=== PATIENT | female | born 1950 | race Caucasian/White ===

== ENCOUNTER → 2018-02-12 09:01 | Outpatient (CLI) | payer MEDICARE, BC, SELFPAY ==
[2018-02-12 11:12] LABS: Abs Immature Grans 0.02 k/cumm (0.0-0.09); Absolute Basophil Count 0.03 k/cumm (0.0-0.2); Absolute Eosinophil Count 0.21 k/cumm (0.0-0.7); Absolute Lymphocyte Count 1.16 k/cumm (1.2-3.4); Absolute Neutrophil Count 4.84 k/cumm (1.2-6.7); Basophils % 0.4; Eosinophils % 3.1; HCT 38.2 % (36.0-46.0); HGB 12.6 g/dL (12.0-15.5); Immature Grans % 0.3; Lymphocytes % 16.9; Mean Corpuscular Hemoglobin 28.7 pg (27.0-33.0); Mean Platelet Volume 9.5 fL (8.0-11.0); Monocytes % 8.7; Neutrophils % 70.6; Platelet Count 388 x1000/uL (130-400); RBC 4.39 m/cumm (4.00-5.20); RBC Distribution Width 13.4 % (11.7-14.6); White Blood Cell Count 6.86 k/cumm (4.4-10.8)
[2018-02-12 11:27] LABS: ALT 14 U/L (12-78); AST 9 U/L (15-37); Albumin 3.1 g/dL (3.4-5.0); Alkaline Phosphatase 47 U/L (46-116); Anion Gap 7.1 mmol/L (3-11); BUN 16 mg/dL (7-18); Bilirubin, Total 0.3 mg/dL (0.2-1.0); CO2 28.9 mmol/L (21.0-32.0); CREATININE 0.86 mg/dL (0.55-1.02); Calcium 9.5 mg/dL (8.5-10.1); Chloride 104 mmol/L (98-107); Cholesterol 166 mg/dL (50-200); Glucose 127 mg/dL (70-100); HDL Cholesterol 28 mg/dL (40-60); LDL CHOLESTEROL 111 mg/dL (<100); Potassium 4.9 mmol/L (3.5-5.1); Sodium 140 mmol/L (136-145); Triglyceride 186 mg/dL (30-150)
[2018-02-12 11:50] LABS: Hemoglobin A1C 6.6 % (4.5-6.2)
[2018-02-13 06:37] LABS: Vitamin D 25 Total 18.3 ng/ml (30-100)
== END ==
DX: I10 Essential (primary) hypertension (principal); E78.5 Hyperlipidemia, unspecified; E11.9 Type 2 diabetes mellitus without complications; R41.3 Other amnesia; E66.9 Obesity, unspecified; F32.9 Major depressive disorder, single episode, unspecified; F41.9 Anxiety disorder, unspecified; K21.9 Gastro-esophageal reflux disease without esophagitis; R10.13 Epigastric pain
CPT/HCPCS: 36415; 80053; 80061; 82306; 83721; 83036; 85025

== ENCOUNTER 2018-03-28 19:55 | Emergency (ER) | payer MEDICARE, BC, SELFPAY ==
[2018-03-28 19:59] VITALS: BP 110/62; PULSE 88; RESP 18; TEMP 36.7; O2SAT 96
--- NOTE | 2018-03-28 20:07 | DI.CT_ITS ---
SYMPTOM/DIAGNOSIS; FELL, PAIN NONCONTRAST HEAD CT: Comparison is made with 08/02/16. The ventricles and sulci are within normal limits. There are areas of decreased attenuation in the white matter suggestive of small vessel ischemic disease. No acute intracranial hemorrhage, infarct, midline shift or mass effect is identified. The visualized paranasal sinuses are clear. The mastoid air cells are well pneumatized. The calvarium is intact. IMPRESSION: No acute intracranial process. FACIAL CT: Multiple contiguous axial images of the face were obtained. Sagittal and coronal reformatted images were evaluated on the Siemens work station. No acute fracture or dislocation is seen. The orbits and retro-orbital soft tissues are unremarkable. The visualized paranasal sinuses are clear. IMPRESSION: No acute fracture.
--- NOTE | 2018-03-28 20:16 | ED.GENADUL_ITS ---
Discharge Plan Disposition Patient Disposition: HOME Condition: Stable Discharge Details Chief Complaint: Trauma Clinical Impression: Concussion, Contusion of face, Contusion of hip, left Primary Care Provider: Rosa Elena Kingston ED Provider: Armen Ann Home Meds and New Rx's Prescriptions: New ondansetron [Zofran ODT] 4 mg tablet,disintegrating 4 mg PO TID PRN (Reason: nausea and vomiting) 5 Days Qty: 20 RF: 0 Continue metformin [Glucophage XR] 500 mg tablet extended release 24 hr 500 mg PO QPM Qty: 30 RF: 3 citalopram 10 mg tablet 10 mg PO DAILY Qty: 30 RF: 3 loratadine 10 MG tablet 10 mg PO DAILY Qty: 30 RF: 0 blood-glucose meter 1 EACH misc 1 ea Miscellaneous DAILY Qty: 1 RF: 0 blood sugar diagnostic [Blood Glucose Test] 1 EACH strip 1 ea Miscellaneous DAILY Qty: 100 RF: 12 lancets 1 EACH misc 1 ea Miscellaneous TID & PRN Qty: 400 RF: 12 oxybutynin chloride 5 MG tablet 5 mg PO BID Qty: 90 RF: 3 lorazepam [Ativan] 0.5 MG tablet 0.5 mg PO BID PRNQty: 15 RF: 0 cholecalciferol (vitamin D3) 1,000 UNIT tablet 1,000 unit PO DAILY Qty: 90 RF: 3 losartan 50 MG tablet 50 mg PO BID Qty: 180 RF: 3 latanoprost [Xalatan] 2.5 ML drops 1 drp OU HS RF: 0 acetaminophen [Arthritis Pain Relief (acetam)] 650 MG tablet extended release 2 tab PO BID PRN PRNRF: 0 Discharge Instructions Instructions: Concussion (ED) Additional Instructions: you can take 1000mg tylenol and 600mg ibuprofen every 6 hours for pain as needed follow up with your primary care provider this week if you have severe worsening of pain or persistent vomit return to the emergency department Discharge Data Discharge Physician: Armen Ann Medical Decision Making 67 yo female states she woke up in the middle of the night 2 nights ago and fell in the bathroom striking her head. HAs had a headache and nausea since, denies chest adeel, sob, abd pain. Has no focal neuro deficits on exam and no findings to suggest entrapment. Has bruising of the left side of her face. Given the fall and symptoms will image head and face to eval for traumatic injury, suspect her symptoms are due to concussion pt remains stable, imaging and lab work shows no acute findings, has mild frontal headache, I suspect concussion, advised rest and otc pain relievers and f/u with pcp with return precautions given Differential Diagnosis tbi, concussion Imaging Data Radiologic Study: Attestation: I personally reviewed and interpreted this imaging study as follows: Imaging: X-Ray My impression: no acute findings Radiologist's impression: no acute findings Radiologic Study #2: Attestation: I personally reviewed and interpreted this imaging study as follows: Imaging: CT Scan My impression: no acute findings Radiologist's impression: no acute findings Lab Data Lab results reviewed: Yes I reviewed the patient's lab results. ECG Data Attestation: I personally reviewed and interpreted this ECG (s) as follows: Prior ECG tracings: available for review Interpretation: sinus rhythm, rate of 88, normal pr, no acute st t wave changes HPI General Mode of arrival: ambulatory . Date/Time Provider Initiated Documentation: 03/28/18 20:01 . Limitations to Documentation: no limitations . Information obtained by: patient . History of Present Illness 67 year old F presents to the emergency department with the chief complaint of headache, described as moderate, with intensity rated at 5. Quality is described as aching, and is localized to the head. Patient reports no radiation. Patient started experiencing this day(s) (2) and it has been constant. No relieving factors improve symptom(s), No exacerbating factors reported . Patient notes other (nausea). Patient did receive the following treatments prior to arrival, none Related Data Home Medications Medication Instructions Recorded Confirmed latanoprost [Xalatan] 1 drp OU HS 10/02/14 03/28/18 acetaminophen [Arthritis Pain 2 tab PO BID PRN PRN 11/20/15 03/28/18 Relief (acetam)] loratadine 10 mg PO DAILY #30 tab-cap 11/05/16 03/28/18 lorazepam [Ativan] 0.5 mg PO BID PRN #15 tab-cap 02/05/18 03/28/18 Previous Rx's Medication Instructions Recorded blood sugar diagnostic [Blood #100 strip 10/01/17 Glucose Test] blood-glucose meter #1 ea 10/01/17 lancets #400 ea 10/01/17 oxybutynin chloride 5 mg PO BID #90 tab-cap 12/25/17 cholecalciferol (vitamin D3) 1,000 unit PO DAILY #90 tab-cap 02/13/18 losartan 50 mg PO BID #180 tab-cap 02/19/18 citalopram 10 mg tablet 10 mg PO DAILY #30 tab 03/24/18 metformin ER 500 mg 500 mg PO QPM #30 tab 03/24/18 tablet,extended release 24 hr ondansetron [Zofran ODT] 4 mg PO TID PRN 5 Days #20 tab 03/28/18 Allergies Allergy/AdvReac Type Severity Reaction Status Date / Time Penicillins Allergy Unverified 03/28/18 20:08 General Stated Complaint: Trauma MELISSA: 3 Review of Systems Review of Systems All systems reviewed & are unremarkable except as noted in HPI and below Constitutional Denies chills and Denies fever(s) Eyes Patient Denies loss of vision ENT Denies change in voice Cardiovascular Denies chest pain and Denies dyspnea Respiratory Denies dyspnea Gastrointestinal Denies abdominal pain and Denies vomiting Genitourinary Denies dysuria Musculoskeletal Denies joint swelling Integumentary/Breasts Denies rash Neurologic Denies loss of vision Psychiatric Denies depression Endocrine Denies cold intolerance and Denies heat intolerance Allergic/Immunologic Reports urticaria PFSH Family History Mother No problems noted. Father Heart disease Neoplasm Sister Neoplasm Brother Neoplasm Medical History Depression Diabetes Hypertension Social History current occupational status: retired pets and animals: Yes pets and animals: dog(s) frequency: 3-4 times per week duration: 15-30 minutes/day Smoking/Tobacco Use Status: Former Tobacco Use how long ago did patient quit smokin alcohol intake: never substance use type: does not use special edgard needs: No Surgical History section Cystectomy, Mini Lap Ovarian (~05/1967) Elbow surgery (~1991) Hernia repair Ureteroscopy Exam Const General: no acute distress Orientation: alert HENMT Head: other (bruising around the left orbit, eomi without any pain) Ears: external ears normal General nose exam: external nose normal Mouth: moist mucous membranes Eyes Visual Amezcua: normal visual amezcua by confrontation Conjunctivae: conjunctivae normal Pupils: PERRL Neck Neck: normal visual inspection Resp Effort & Inspection: normal respiratory effort and able to speak in complete sentences Cardio Rate: regular rate Skin General skin exam: no rashes or lesions noted Neuro General: alert and oriented x3 Extrem General: normal to inspection Psych Mental Status: mental status grossly normal Course Vital Signs Temperature 36.7 C 03/28/18 19:59 Pulse 88 03/28/18 19:59 Respiratory Rate 18 03/28/18 19:59 Blood Pressure 110/62 03/28/18 19:59 Pulse Oximetry 96 03/28/18 19:59 Temperature 36.7 C 03/28/18 19:59 Pulse 88 03/28/18 19:59 Respiratory Rate 18 03/28/18 19:59 Blood Pressure 110/62 03/28/18 19:59 Pulse Oximetry 96 03/28/18 19:59
[2018-03-28 20:22] LABS: Abs Immature Grans 0.03 k/cumm (0.0-0.09); Absolute Eosinophil Count 0.15 k/cumm (0.0-0.7); Absolute Lymphocyte Count 0.88 k/cumm (1.2-3.4); Absolute Monocyte Count 1.11 k/cumm (0.11-0.7); Basophils % 0.3; Eosinophils % 1.3; HCT 38.9 % (36.0-46.0); HGB 12.9 g/dL (12.0-15.5); Immature Grans % 0.3; Lymphocytes % 7.4; Mean Corp. HGB Concentration 33.2 g/dL (32.0-36.0); Mean Corpuscular Hemoglobin 29.1 pg (27.0-33.0); Mean Corpuscular Volume 87.8 fL (80-95); Mean Platelet Volume 10.1 fL (8.0-11.0); Monocytes % 9.4; Neutrophils % 81.3; Platelet Count 284 x1000/uL (130-400); RBC 4.43 m/cumm (4.00-5.20); RBC Distribution Width 13.7 % (11.7-14.6); White Blood Cell Count 11.84 k/cumm (4.4-10.8)
[2018-03-28 20:25] LABS: Absolute Basophil Count 0.04 k/cumm (0.0-0.2); Absolute Neutrophil Count 9.63 k/cumm (1.2-6.7)
[2018-03-28 20:34] LABS: ALT 12 U/L (12-78); AST 8 U/L (15-37); Albumin 2.8 g/dL (3.4-5.0); Alkaline Phosphatase 68 U/L (46-116); BUN 21 mg/dL (7-18); Bilirubin, Total 0.5 mg/dL (0.2-1.0); CREATININE 1.05 mg/dL (0.55-1.02); Calcium 9.6 mg/dL (8.5-10.1); Chloride 101 mmol/L (98-107); Estimated GFR 52.12 (mL/min/1.73m2); Glucose 113 mg/dL (70-100); Potassium 3.4 mmol/L (3.5-5.1); Sodium 137 mmol/L (136-145); Total Protein 7.4 g/dL (6.4-8.2)
--- NOTE | 2018-03-28 20:34 | DI.RAD_ITS ---
SYMPTOM/DIAGNOSIS: PAIN, S/P FALL LEFT HIP AND PELVIS: Two views. No acute fracture or dislocation is identified. The bones appear normally mineralized. The sacroiliac joints show mild degenerative changes bilaterally. There are mild degenerative changes seen in the lower lumbar spine. The soft tissues are unremarkable. IMPRESSION: No acute fracture or dislocation.
[2018-03-28 20:38] LABS: INR 1.1 (1.0-3.5); PTT Activated 30.8 sec (21.0-31.4); Prothrombin Time 10.8 sec (9.3-10.8)
--- NOTE | 2018-03-28 21:02 | DI.VRAD_ITS ---
EXAM: XR Left Hip With Pelvis When Performed, 2 or 3 Views CLINICAL HISTORY: 67 years old, female; Injury or trauma; Fall; Initial encounter; Blunt trauma (contusions or hematomas); Left; Hip TECHNIQUE: Two or three views of the left hip, with pelvis when performed. COMPARISON: CR LEFT HIP COMPLETE \T\ AP PELVIS 03/19/2017 11:27 AM FINDINGS: Bones/joints: No acute fracture or dislocation identified. Mild degenerative changes of the SI joints. Mild degenerative changes of the hips. Soft tissues: Unremarkable. IMPRESSION: No acute findings. Dictated and Authenticated by: Erlin Duval MD. Ordering:ELYSE NICOLE MD
--- NOTE | 2018-03-28 21:06 | DI.VRAD_ITS ---
EXAM: CT Head Without Intravenous Contrast CLINICAL HISTORY: 67 years old, female; Injury or trauma; Fall; Initial encounter; Blunt trauma (contusions or hematomas); Orbit/periorbital; Left TECHNIQUE: Axial computed tomography images of the head/brain without intravenous contrast. Coronal and sagittal reformatted images were created and reviewed. COMPARISON: No relevant prior studies available. FINDINGS: Brain: Nonspecific hypodensities of the periventricular and deep subcortical white matter, most likely secondary to chronic small vessel ischemic change. No intracranial hemorrhage or extra-axial fluid collection. No evidence of mass effect or midline shift. Herron-white matter differentiation is normal. Ventricles: Prominence of the ventricles and sulci, most likely attributed to parenchymal volume loss. Bones/joints: Unremarkable. No acute fracture. Soft tissues: Unremarkable. Sinuses: Unremarkable as visualized. No acute sinusitis. Mastoid air cells: Unremarkable as visualized. No mastoid effusion. IMPRESSION: No acute intracranial pathology. EXAM: CT Maxillofacial Without Intravenous Contrast CLINICAL HISTORY: 67 years old, female; Injury or trauma; Fall; Initial encounter; Blunt trauma (contusions or hematomas); Orbit/periorbital; Left TECHNIQUE: Axial computed tomography images of the face without intravenous contrast. Coronal and sagittal reformatted images were created and reviewed. COMPARISON: No relevant prior studies available. FINDINGS: Bones/joints: No acute fracture. Soft tissues: Unremarkable. Orbits: Unremarkable. Sinuses: Unremarkable. No air-fluid levels. IMPRESSION: No acute fracture. Dictated and Authenticated by: Erlin Duval MD. Ordering:ELYSE NICOLE MD
[2018-03-28] MEDS: Ondansetron O.D.T. 4 MG TABEF PO (21:28)
[2018-03-28 21:29] VITALS: BP 128/80; PULSE 88; RESP 18; TEMP 36.8; O2SAT 95
== END 2018-03-28 21:30 | disposition home or self-care (01) ==
PROVIDERS: Emergency Provider Emergency Medicine
DX: S06.0X0A Concussion without loss of consciousness, initial encounter (principal); S00.83XA Contusion of other part of head, initial encounter; S70.02XA Contusion of left hip, initial encounter; W01.198A Fall on same level from slipping, tripping and stumbling with subsequent striking against other object, initial encounter; G44.319 Acute post-traumatic headache, not intractable; R11.0 Nausea; I10 Essential (primary) hypertension; E11.9 Type 2 diabetes mellitus without complications; Z79.84 Long term (current) use of oral hypoglycemic drugs
CPT/HCPCS: 36415; 80053; 93005; 99285; 70450; 70486; 73502; 85025; 85610; 85730; 93010

== ENCOUNTER 2018-04-09 15:28 | Outpatient (CLI) | payer MEDICARE, BC, SELFPAY ==
[2018-04-09 17:09] LABS: ALT 17 U/L (12-78); AST 12 U/L (15-37); Albumin 3.5 g/dL (3.4-5.0); Alkaline Phosphatase 55 U/L (46-116); Anion Gap 10.1 mmol/L (3-11); BUN 16 mg/dL (7-18); Bilirubin, Total 0.2 mg/dL (0.2-1.0); CO2 27.9 mmol/L (21.0-32.0); CREATININE 1.01 mg/dL (0.55-1.02); Calcium 9.7 mg/dL (8.5-10.1); Chloride 101 mmol/L (98-107); Estimated GFR 54.51 (mL/min/1.73m2); Glucose 160 mg/dL (70-100); Sodium 139 mmol/L (136-145); Total Protein 7.3 g/dL (6.4-8.2)
== END 2018-04-09 15:48 ==
DX: R11.2 Nausea with vomiting, unspecified (principal); E87.6 Hypokalemia
CPT/HCPCS: 36415; 80053

== ENCOUNTER 2018-06-18 17:09 | Outpatient (CLI) | payer MEDICARE, BC, SELFPAY ==
--- NOTE | 2018-06-18 14:37 | DI.RAD_ITS ---
SYMPTOMS/DIAGNOSIS: RIGHT HIP PAIN, M25.559, HIP AND BACK PAIN, RADICULOPATHY, M54.10 BILATERAL HIPS: The bones are intact and normally mineralized. No acute fracture, dislocation, lytic or sclerotic lesion is seen. There are mild degenerative changes of the hips bilaterally. Mild degenerative changes are seen at the sacroiliac joints. The symphysis pubis is intact. The soft tissues are unremarkable. IMPRESSION: Mild degenerative changes seen at the hips bilaterally. LUMBAR SPINE: AP, lateral and bilateral oblique views. There are five lumbar-type vertebral bodies. There is normal alignment. No spondylolysis or spondylolisthesis is seen. There is mild disc space narrowing at L1-L2. Small endplate osteophytes are present throughout the lumbar spine. There are degenerative changes of the facets seen at L4-5 and L5-S1. No acute fractures or subluxations are seen. There is calcification of the abdominal aorta noted. IMPRESSION: Mild to moderate degenerative changes in the lumbar spine.
== END 2018-06-18 17:29 ==
PROVIDERS: Visit Provider Internal Medicine
DX: M25.551 Pain in right hip (principal); M16.0 Bilateral primary osteoarthritis of hip; M54.5 Low back pain; M51.36 Other intervertebral disc degeneration, lumbar region; M54.16 Radiculopathy, lumbar region; M47.26 Other spondylosis with radiculopathy, lumbar region
CPT/HCPCS: 73521; 72110

== ENCOUNTER → 2018-07-16 10:28 | Outpatient (BNVA) | payer MEDICARE, BC, SELFPAY | PROVIDERS: Visit Provider Orthopaedic Surgery | DX: M70.61 Trochanteric bursitis, right hip (principal) | CPT/HCPCS: 99214; 99358 ==

== ENCOUNTER → 2018-09-11 09:58 | Outpatient (BNVA) | payer MEDICARE, BC, SELFPAY | PROVIDERS: Visit Provider Orthopaedic Surgery | DX: M70.61 Trochanteric bursitis, right hip (principal) | CPT/HCPCS: 20610; 99213; J1040 ==

== ENCOUNTER 2018-09-23 19:49 | Emergency (ER) | payer MEDICARE, BC, SELFPAY ==
[2018-09-23 19:57] VITALS: BP 115/60; PULSE 62; RESP 18; TEMP 36.8; O2SAT 98
--- NOTE | 2018-09-23 20:15 | W.ED.GENAD ---
Discharge Plan Discharge Details Chief Complaint: Orthopedic Primary Care Provider: Rosa Elena Kingston ED Provider: Rustam Thompson Home Meds and New Rx's Prescriptions: New oxycodone 5 mg capsule 5 mg PO DAILY Qty: 10 RF: 0 ibuprofen 600 mg tablet 600 mg PO TID PRN (Reason: pain) Qty: 90 RF: 0 acetaminophen [Tylenol] 325 mg capsule 650 mg PO Q6H PRN (Reason: pain) Qty: 90 RF: 0 lidocaine [Lidoderm] 5 % adhesive patch,medicated 1 patch TP DAILY Qty: 15 RF: 0 Continued lorazepam 0.5 mg tablet 0.5 mg PO BID PRN (Reason: anxiety) Qty: 15 RF: 0 citalopram 20 mg tablet 20 mg PO DAILY Qty: 30 RF: 1 blood-glucose meter 1 EACH misc 1 ea Miscellaneous DAILY Qty: 1 RF: 0 Blood Glucose Test 1 EACH strip 1 ea Miscellaneous DAILY Qty: 100 RF: 12 lancets 1 EACH misc 1 ea Miscellaneous TID & PRN Qty: 400 RF: 12 oxybutynin chloride 5 MG tablet 5 mg PO BID Qty: 90 RF: 3 cholecalciferol (vitamin D3) 1,000 UNIT tablet 1,000 unit PO DAILY Qty: 90 RF: 3 losartan 50 MG tablet 50 mg PO BID Qty: 180 RF: 3 acetaminophen [Arthritis Pain Relief (acetam)] 650 MG tablet extended release 2 tab PO BID PRN PRNRF: 0 No Action oxycodone 5 mg capsule 5 mg PO Q6H RF: 0 Discharge Instructions Instructions: Proximal Humerus Fracture (ED) Additional Instructions: Take medication as prescribed. Use sling. No use of right arm until cleared. Follow-up with orthopedics. Call to schedule an appointment. Please contact your primary care physician to arrange follow-up. Return to the ER for any worsening or new concerning symptoms. Referrals: [facility] [Provider Group] Rosa Elena Kingston NP [Primary Care Provider] - Aquilino Yarbrough MD [ [facility] STAFF PHYSICIAN] - Discharge Data Discharge Date/Time-TO BE ENTERED AT DEPARTURE: 09/23/18 21:36 Medical Decision Making 20:19 --67-year-old female here after mechanical fall on ice with injury to her right upper extremity. Patient has tenderness proximal humerus and shoulder. She is neurovascular intact distally. Right hand with superficial abrasion. Plan to cleanse and dress wound. 21:19 --x-ray interpreted by radiology: IMPRESSION: 1. Humeral shaft is impacted into the humeral head resulting in displaced humeral neck fracture and comminuted displaced humeral head fracture. 2. The glenohumeral joint is aligned. Sling applied. Lidoerm patch applied. Usual and customary discharge instructions were provided. HPI General Mode of arrival: ambulatory. Date/Time Provider Initiated Documentation: 09/23/18 20:14. Limitations to Documentation: no limitations. Information obtained by: patient. HPI Narrative: 67-year-old female presents with chief complaint of arm pain. Patient notes she slipped and fell on ice at 5:30 PM tonight. She has had pain in her right upper arm since the fall. Pain radiates from her elbow up to her shoulder. Pain is severe. Pain worse with movement and on palpation. She has no associated numbness or tingling. She denies neck pain. She did not hit her head or lose consciousness. She has no headache. She has no chest pain or shortness of breath or pelvic pain. She notes that she has sustained no other injuries. Related Data Home Medications Medication Instructions Recorded Confirmed acetaminophen [Arthritis Pain 2 tab PO BID PRN PRN 11/20/15 09/30/18 Relief (acetam)] Blood Glucose Test #100 strip 10/01/17 09/30/18 blood-glucose meter #1 ea 10/01/17 09/30/18 lancets #400 ea 10/01/17 09/30/18 oxybutynin chloride 5 mg PO BID #90 tab-cap 12/25/17 09/30/18 cholecalciferol (vitamin D3) 1,000 unit PO DAILY #90 tab-cap 02/13/18 09/30/18 losartan 50 mg PO BID #180 tab-cap 02/19/18 09/30/18 lorazepam 0.5 mg tablet 0.5 mg PO BID PRN #15 tab 05/20/18 09/30/18 citalopram 20 mg tablet 20 mg PO DAILY #30 tab 08/18/18 09/30/18 acetaminophen [Tylenol] 650 mg PO Q6H PRN #90 cap 09/23/18 09/30/18 ibuprofen 600 mg PO TID PRN #90 tab 09/23/18 09/30/18 lidocaine [Lidoderm] 1 patch TP DAILY #15 each 09/23/18 09/30/18 oxycodone 5 mg PO DAILY #10 cap 09/23/18 09/30/18 oxycodone 5 mg capsule 5 mg PO Q6H cap 10/01/18 Previous Rx's Medication Instructions Recorded Blood Glucose Test #100 strip 10/01/17 blood-glucose meter #1 ea 10/01/17 lancets #400 ea 10/01/17 oxybutynin chloride 5 mg PO BID #90 tab-cap 12/25/17 cholecalciferol (vitamin D3) 1,000 unit PO DAILY #90 tab-cap 02/13/18 losartan 50 mg PO BID #180 tab-cap 02/19/18 lorazepam 0.5 mg tablet 0.5 mg PO BID PRN #15 tab 05/20/18 citalopram 20 mg tablet 20 mg PO DAILY #30 tab 08/18/18 acetaminophen [Tylenol] 650 mg PO Q6H PRN #90 cap 09/23/18 ibuprofen 600 mg PO TID PRN #90 tab 09/23/18 lidocaine [Lidoderm] 1 patch TP DAILY #15 each 09/23/18 oxycodone 5 mg PO DAILY #10 cap 09/23/18 Allergies Allergy/AdvReac Type Severity Reaction Status Date / Time Penicillins Allergy Verified 09/30/18 09:59 General Stated Complaint: Orthopedic MELISSA: 3 Review of Systems Review of Systems All systems reviewed & are unremarkable except as noted in HPI and below PFSH Medical History Depression Diabetes Hypertension Surgical History section Cystectomy, Mini Lap Ovarian (~05/1967) Elbow surgery (~1991) Hernia repair Ureteroscopy Family History Mother No problems noted. Father Heart disease Neoplasm Sister Neoplasm Brother Neoplasm Social History Smoking/Tobacco Use Status: Never Alcohol Intake: never Drug use: Never Substance use type: does not use Pets and animals: Yes Pets and animals: dog(s) Duration: 15-30 minutes/day Frequency: 3-4 times per week Special edgard needs: No Do you feel safe at home: Yes Do you feel safe in your relationship?: Yes Exam Const General: cooperative and no acute distress [facility] Head: normocephalic and atraumatic Mouth: moist mucous membranes Neck Neck: full ROM and nontender Resp Auscultation: clear to auscultation bilaterally, no rales, no rhonchi and no wheezes Cardio Rate: regular rate and not tachycardic Rhythm: regular rhythm Pulses: radial pulses present on the right 2+ GI Palpation: soft, not firm, no guarding, not rigid and nontender Skin General skin exam: no rashes or lesions noted Neuro General: alert, awake, oriented x3 and tone normal Extrem Right upper extremity: normal capillary refill, shoulder/upper arm Details: tenderness Location: of the proximal humerus, axillary nerve sensory function normal, abnormal ROM Details: pain with passive ROM Details: with ABduction and with extension and abrasion (palm superficial, no active bleeding), elbow/forearm Details: normal ROM; no tenderness, wrist Details: normal ROM; no tenderness and hand Details: neurosensory exam normal and normal ROM of fingers; no tenderness Psych Appearance: grossly normal Mental Status: mental status grossly normal Speech and Movement: speech and movement normal Course Vital Signs Temperature 36.8 C 09/23/18 19:57 Pulse 62 09/23/18 19:57 Respiratory Rate 18 09/23/18 19:57 Blood Pressure 115/60 09/23/18 19:57 Pulse Oximetry 98 09/23/18 19:57 Temperature 36.8 C 09/23/18 19:57 Temperature Source Temporal Artery Scan 09/23/18 19:57 Pulse 62 09/23/18 19:57 Respiratory Rate 18 09/23/18 19:57 Respiratory Effort 09/23/18 19:57 Blood Pressure 115/60 09/23/18 19:57 Blood Pressure Position Sitting 09/23/18 19:57 Pulse Oximetry 98 09/23/18 19:57 Oxygen Delivery Method Room Air 09/23/18 19:57 Oxygen Flow Rate 0 09/23/18 19:57
--- NOTE | 2018-09-23 20:20 | ED.GENADUL_ITS ---
Discharge Plan Discharge Details Chief Complaint: Orthopedic Primary Care Provider: Rosa Elena Kingston ED Provider: Rustam Thompson Home Meds and New Rx's Prescriptions: New oxycodone 5 mg capsule 5 mg PO DAILY Qty: 10 RF: 0 ibuprofen 600 mg tablet 600 mg PO TID PRN (Reason: pain) Qty: 90 RF: 0 acetaminophen [Tylenol] 325 mg capsule 650 mg PO Q6H PRN (Reason: pain) Qty: 90 RF: 0 lidocaine [Lidoderm] 5 % adhesive patch,medicated 1 patch TP DAILY Qty: 15 RF: 0 Continued lorazepam 0.5 mg tablet 0.5 mg PO BID PRN (Reason: anxiety) Qty: 15 RF: 0 citalopram 20 mg tablet 20 mg PO DAILY Qty: 30 RF: 1 blood-glucose meter 1 EACH misc 1 ea Miscellaneous DAILY Qty: 1 RF: 0 Blood Glucose Test 1 EACH strip 1 ea Miscellaneous DAILY Qty: 100 RF: 12 lancets 1 EACH misc 1 ea Miscellaneous TID & PRN Qty: 400 RF: 12 oxybutynin chloride 5 MG tablet 5 mg PO BID Qty: 90 RF: 3 cholecalciferol (vitamin D3) 1,000 UNIT tablet 1,000 unit PO DAILY Qty: 90 RF: 3 losartan 50 MG tablet 50 mg PO BID Qty: 180 RF: 3 acetaminophen [Arthritis Pain Relief (acetam)] 650 MG tablet extended release 2 tab PO BID PRN PRNRF: 0 No Action oxycodone 5 mg capsule 5 mg PO Q6H RF: 0 Discharge Instructions Instructions: Proximal Humerus Fracture (ED) Additional Instructions: Take medication as prescribed. Use sling. No use of right arm until cleared. Follow-up with orthopedics. Call to schedule an appointment. Please contact your primary care physician to arrange follow-up. Return to the ER for any worsening or new concerning symptoms. Referrals: [facility] [Provider Group] Rosa Elena Kingston NP [Primary Care Provider] - Aquilino Yarbrough MD [ [facility] STAFF PHYSICIAN] - Discharge Data Discharge Date/Time-TO BE ENTERED AT DEPARTURE: 09/23/18 21:36 Medical Decision Making 20:19 --67-year-old female here after mechanical fall on ice with injury to her right upper extremity. Patient has tenderness proximal humerus and shoulder. She is neurovascular intact distally. Right hand with superficial abrasion. Plan to cleanse and dress wound. 21:19 --x-ray interpreted by radiology: IMPRESSION: 1. Humeral shaft is impacted into the humeral head resulting in displaced humeral neck fracture and comminuted displaced humeral head fracture. 2. The glenohumeral joint is aligned. Sling applied. Lidoerm patch applied. Usual and customary discharge instructions were provided. HPI General Mode of arrival: ambulatory . Date/Time Provider Initiated Documentation: 09/23/18 20:14 . Limitations to Documentation: no limitations . Information obtained by: patient . HPI Narrative: 67-year-old female presents with chief complaint of arm pain. Patient notes she slipped and fell on ice at 5:30 PM tonight. She has had pain in her right upper arm since the fall. Pain radiates from her elbow up to her shoulder. Pain is severe. Pain worse with movement and on palpation. She has no associated numbness or tingling. She denies neck pain. She did not hit her head or lose consciousness. She has no headache. She has no chest pain or shortness of breath or pelvic pain. She notes that she has sustained no other injuries. Related Data Home Medications Medication Instructions Recorded Confirmed acetaminophen [Arthritis Pain 2 tab PO BID PRN PRN 11/20/15 09/30/18 Relief (acetam)] Blood Glucose Test #100 strip 10/01/17 09/30/18 blood-glucose meter #1 ea 10/01/17 09/30/18 lancets #400 ea 10/01/17 09/30/18 oxybutynin chloride 5 mg PO BID #90 tab-cap 12/25/17 09/30/18 cholecalciferol (vitamin D3) 1,000 unit PO DAILY #90 tab-cap 02/13/18 09/30/18 losartan 50 mg PO BID #180 tab-cap 02/19/18 09/30/18 lorazepam 0.5 mg tablet 0.5 mg PO BID PRN #15 tab 05/20/18 09/30/18 citalopram 20 mg tablet 20 mg PO DAILY #30 tab 08/18/18 09/30/18 acetaminophen [Tylenol] 650 mg PO Q6H PRN #90 cap 09/23/18 09/30/18 ibuprofen 600 mg PO TID PRN #90 tab 09/23/18 09/30/18 lidocaine [Lidoderm] 1 patch TP DAILY #15 each 09/23/18 09/30/18 oxycodone 5 mg PO DAILY #10 cap 09/23/18 09/30/18 oxycodone 5 mg capsule 5 mg PO Q6H cap 10/01/18 Previous Rx's Medication Instructions Recorded Blood Glucose Test #100 strip 10/01/17 blood-glucose meter #1 ea 10/01/17 lancets #400 ea 10/01/17 oxybutynin chloride 5 mg PO BID #90 tab-cap 12/25/17 cholecalciferol (vitamin D3) 1,000 unit PO DAILY #90 tab-cap 02/13/18 losartan 50 mg PO BID #180 tab-cap 02/19/18 lorazepam 0.5 mg tablet 0.5 mg PO BID PRN #15 tab 05/20/18 citalopram 20 mg tablet 20 mg PO DAILY #30 tab 08/18/18 acetaminophen [Tylenol] 650 mg PO Q6H PRN #90 cap 09/23/18 ibuprofen 600 mg PO TID PRN #90 tab 09/23/18 lidocaine [Lidoderm] 1 patch TP DAILY #15 each 09/23/18 oxycodone 5 mg PO DAILY #10 cap 09/23/18 Allergies Allergy/AdvReac Type Severity Reaction Status Date / Time Penicillins Allergy Verified 09/30/18 09:59 General Stated Complaint: Orthopedic MELISSA: 3 Review of Systems Review of Systems All systems reviewed & are unremarkable except as noted in HPI and below PFSH Medical History Depression Diabetes Hypertension Surgical History section Cystectomy, Mini Lap Ovarian (~05/1967) Elbow surgery (~1991) Hernia repair Ureteroscopy Family History Mother No problems noted. Father Heart disease Neoplasm Sister Neoplasm Brother Neoplasm Social History Smoking/Tobacco Use Status: Never Alcohol Intake: never Drug use: Never Substance use type: does not use Pets and animals: Yes Pets and animals: dog(s) Duration: 15-30 minutes/day Frequency: 3-4 times per week Special edgard needs: No Do you feel safe at home: Yes Do you feel safe in your relationship?: Yes Exam Const General: cooperative and no acute distress [facility] Head: normocephalic and atraumatic Mouth: moist mucous membranes Neck Neck: full ROM and nontender Resp Auscultation: clear to auscultation bilaterally, no rales, no rhonchi and no wheezes Cardio Rate: regular rate and not tachycardic Rhythm: regular rhythm Pulses: radial pulses present on the right 2+ GI Palpation: soft, not firm, no guarding, not rigid and nontender Skin General skin exam: no rashes or lesions noted Neuro General: alert, awake, oriented x3 and tone normal Extrem Right upper extremity: normal capillary refill, shoulder/upper arm Details: tenderness Location: of the proximal humerus, axillary nerve sensory function normal, abnormal ROM Details: pain with passive ROM Details: with ABduction and with extension and abrasion (palm superficial, no active bleeding), elbow/forearm Details: normal ROM; no tenderness, wrist Details: normal ROM; no tenderness and hand Details: neurosensory exam normal and normal ROM of fingers; no tenderness Psych Appearance: grossly normal Mental Status: mental status grossly normal Speech and Movement: speech and movement normal Course Vital Signs Temperature 36.8 C 09/23/18 19:57 Pulse 62 09/23/18 19:57 Respiratory Rate 18 09/23/18 19:57 Blood Pressure 115/60 09/23/18 19:57 Pulse Oximetry 98 09/23/18 19:57 Temperature 36.8 C 09/23/18 19:57 Temperature Source Temporal Artery Scan 09/23/18 19:57 Pulse 62 09/23/18 19:57 Respiratory Rate 18 09/23/18 19:57 Respiratory Effort 09/23/18 19:57 Blood Pressure 115/60 09/23/18 19:57 Blood Pressure Position Sitting 09/23/18 19:57 Pulse Oximetry 98 09/23/18 19:57 Oxygen Delivery Method Room Air 09/23/18 19:57 Oxygen Flow Rate 0 09/23/18 19:57
--- NOTE | 2018-09-23 20:45 | DI.RAD_ITS ---
SYMPTOM/DIAGNOSIS: FELL ON ICE, PAIN RIGHT HUMERUS AND RIGHT SHOULDER: Multiple views were obtained. There is a comminuted fracture involving the proximal right humerus. The fracture involves the humeral head with extension into the humeral neck. There is mild displacement of the fracture fragments noted. The humeral head appears impacted on the shaft. The glenohumeral joint appears well maintained as is the acromioclavicular joint. No other fracture or dislocation is seen. The soft tissues are unremarkable. IMPRESSION: Impacted comminuted fracture involving the right humeral head and surgical neck.
[2018-09-23] MEDS: Lidocaine 5% Patch 1 PATCH TP (21:14)
[2018-09-23] MEDS: Acetaminophen 325 MG TAB 650 MG PO (21:14)
[2018-09-23] MEDS: Ibuprofen 600 MG TAB PO (21:14)
[2018-09-23] MEDS: oxyCODONE 5 MG TAB PO (21:14)
--- NOTE | 2018-09-23 21:16 | DI.VRAD_ITS ---
EXAM: XR Right Humerus, 2 or More Views EXAM DATE/TIME: 09/23/2018 8:15 PM CLINICAL HISTORY: 67 years old, female; Injury or trauma; Fall; Initial encounter; Blunt trauma (contusions or hematomas; Shoulder and arm, upper; Right; Injury date: 09/23/18; Injury details: Fall on ice TECHNIQUE: Imaging protocol: XR Right humerus, 2 or more views. COMPARISON: No relevant prior studies available. FINDINGS: Bones/joints: The humeral shaft is impacted into the humeral head resulting in displaced humeral neck rupture and comminuted displaced humeral head fracture. Soft tissues: Normal. IMPRESSION: The humeral shaft is impacted into the humeral head resulting in displaced humeral neck rupture and comminuted displaced humeral head fracture. Dictated and Authenticated by: Elle Montenegro MD. Ordering:SAEED Easton MD
--- NOTE | 2018-09-23 21:17 | DI.VRAD_ITS ---
EXAM: XR Right Shoulder, Complete, 2 or More Views EXAM DATE/TIME: 09/23/2018 8:15 PM CLINICAL HISTORY: 67 years old, female; Injury or trauma; Fall; Initial encounter; Blunt trauma (contusions or hematomas; Shoulder and arm, upper; Right; Injury date: 09/23/18; Injury details: Fall on ice, arm and shoulder pain TECHNIQUE: Imaging protocol: XR Right shoulder, complete 2 or more views. COMPARISON: No relevant prior studies available. FINDINGS: Bones/joints: Humeral shaft is impacted into the humeral head resulting in displaced humeral neck fracture and comminuted displaced humeral head fracture. The glenohumeral joint is aligned. Soft tissues: Normal. IMPRESSION: 1. Humeral shaft is impacted into the humeral head resulting in displaced humeral neck fracture and comminuted displaced humeral head fracture. 2. The glenohumeral joint is aligned. Dictated and Authenticated by: Elle Montenegro MD. Ordering:SAEED Easton MD
[2018-09-23 21:36] VITALS: BP 115/60; PULSE 62; RESP 18; TEMP 36.8; O2SAT 98
== END 2018-09-23 21:36 ==
PROVIDERS: Emergency Provider Student in an Organized Health Care Education/Training Program
DX: S42.291A Other displaced fracture of upper end of right humerus, initial encounter for closed fracture (principal); W00.0XXA Fall on same level due to ice and snow, initial encounter
CPT/HCPCS: 99283; 73030; 73060; L3650

== ENCOUNTER 2018-09-30 10:07 | Outpatient (CLI) | payer MEDICARE, BC, SELFPAY ==
--- NOTE | 2018-09-30 10:03 | DI.RAD_ITS ---
SYMPTOMS/DIAGNOSIS: F/U FRACTURE RIGHT SHOULDER: Two views were obtained and show previously described proximal humeral fracture with no gross interval change in alignment of the fracture fragments in comparison with previous examination of 09/23.
== END 2018-09-30 10:27 ==
PROVIDERS: Visit Provider Orthopaedic Surgery
DX: S42.201A Unspecified fracture of upper end of right humerus, initial encounter for closed fracture (principal); W01.0XXA Fall on same level from slipping, tripping and stumbling without subsequent striking against object, initial encounter
CPT/HCPCS: 99211; 99212; 73030

== ENCOUNTER 2018-10-23 10:20 | Outpatient (CLI) | payer MEDICARE, BC, SELFPAY ==
--- NOTE | 2018-10-23 10:16 | DI.RAD_ITS ---
SYMPTOMS/DIAGNOSIS: FOLLOW UP RIGHT SHOULDER: Two views were obtained and show previously described fracture of the proximal humerus with no gross interval change in alignment of the fracture fragments in comparison with examination of 09/30.
== END 2018-10-23 10:40 ==
PROVIDERS: Visit Provider Orthopaedic Surgery
DX: S42.201A Unspecified fracture of upper end of right humerus, initial encounter for closed fracture (principal); Z98.890 Other specified postprocedural states; W19.XXXA Unspecified fall, initial encounter; M70.61 Trochanteric bursitis, right hip
CPT/HCPCS: 99213; 73030

== ENCOUNTER 2018-11-20 10:30 | Outpatient (CLI) | payer MEDICARE, BC, SELFPAY ==
--- NOTE | 2018-11-20 09:08 | DI.RAD_ITS ---
SYMPTOMS/DIAGNOSIS: F/U RT HUMERUS FRACTURE RIGHT SHOULDER: Two views were obtained and show previously described fracture of the proximal humerus with no gross interval change in alignment of fracture fragments in comparison with previous examinations allowing for differences in projection.
== END 2018-11-20 10:50 ==
PROVIDERS: Visit Provider Orthopaedic Surgery
DX: S42.291A Other displaced fracture of upper end of right humerus, initial encounter for closed fracture; W00.9XXA Unspecified fall due to ice and snow, initial encounter; M70.61 Trochanteric bursitis, right hip
CPT/HCPCS: 99212; 99213; 73030

== ENCOUNTER 2018-12-10 14:17 | Emergency (ER) | payer MEDICARE, BC, SELFPAY ==
[2018-12-10 14:24] VITALS: BP 139/68; PULSE 95; RESP 18; TEMP 36.4; O2SAT 97
--- NOTE | 2018-12-10 14:38 | DI.CT_ITS ---
SYMPTOMS/DIAGNOSIS: NAUSEA/VOMITING AND ABDOMINAL PAIN CT SCAN OF THE ABDOMEN AND PELVIS: Post contrast CT scan of the abdomen and pelvis was performed. Comparison is 11/01/11. There is scarring or atelectasis in the right lung base. The liver is normal in size. There are a few hypodensities scattered throughout the liver. They are too small for further characterization but likely reflect small cysts. Focal fatty infiltration is seen along the ligamentum teres. The gallbladder is negative. There is no biliary ductal dilatation. The portal, superior mesenteric and splenic veins are patent. The pancreas appears grossly unremarkable, as are the spleen and adrenal glands. The kidneys show normal and symmetric enhancement. No evidence of a solid renal mass is seen. No evidence of obstruction is present. There is a 3 mm nonobstructing stone in the lower pole of the right kidney. The urinary bladder is nondistended, but grossly unremarkable. Reproductive organs are unremarkable. There is atherosclerosis of the abdominal aorta but no aneurysmal dilatation is present. No significant abdominal or pelvic adenopathy, ascites or pneumoperitoneum is present. Note is made of a small anterior abdominal wall hernia. There does appear to be diverticulosis of the colon, but no evidence of acute diverticulitis. There is mild bowel wall thickening seen of the distal stomach with inflammatory stranding seen in this region. There does appear to be an outpouching of approximately 1.7 cm at the medial aspect of the inflamed stomach segment. This may represent an ulcer or a diverticulum. There is enhancement of the wall in this region and inflammatory change present. The findings may represent gastritis or peptic ulcer disease. Neoplasm cannot be entirely excluded. The remainder of the bowel is unremarkable. Degenerative changes are seen in the spine. IMPRESSION: Bowel wall thickening and adjacent inflammatory changes involving the distal stomach. Focal outpouching along the medial aspect of the inflamed distal stomach. The findings are suspicious for peptic ulcer disease. No evidence of perforation. Gastritis involving a duodenal diverticulum cannot be excluded. Further evaluation with endoscopy should be considered. The findings were discussed with Dr. Ann of the Emergency Department on the date of the examination.
--- NOTE | 2018-12-10 14:38 | W.ED.GENAD ---
Discharge Plan Disposition Patient Disposition: HOME Condition: Stable Discharge Details Chief Complaint: GenMedical Clinical Impression: Nausea & vomiting Primary Care Provider: Rosa Elena Kingston ED Provider: Armen Ann Home Meds and New Rx's Prescriptions: New ciprofloxacin HCl 500 mg tablet 500 mg PO Q12H Qty: 14 RF: 0 metronidazole [Flagyl] 500 mg tablet 500 mg PO BID Qty: 14 RF: 0 ondansetron HCl 4 mg tablet 4 mg PO TID-QID PRN (Reason: nausea and vomiting) Qty: 30 RF: 0 omeprazole 20 mg capsule,delayed release(DR/EC) 20 mg PO DAILY Qty: 30 RF: 0 Continued lorazepam 0.5 mg tablet 0.5 mg PO BID PRN (Reason: anxiety) Qty: 15 RF: 0 prednisone 5 mg tablet 5 mg PO DAILY Qty: 30 RF: 0 citalopram 40 mg tablet 40 mg PO DAILY Qty: 90 RF: 3 cholecalciferol (vitamin D3) 1,000 unit tablet 2,000 unit PO DAILY Qty: 180 RF: 3 blood-glucose meter 1 EACH misc 1 ea Miscellaneous DAILY Qty: 1 RF: 0 Blood Glucose Test 1 EACH strip 1 ea Miscellaneous DAILY Qty: 100 RF: 12 lancets 1 EACH misc 1 ea Miscellaneous TID & PRN Qty: 400 RF: 12 losartan 50 MG tablet 50 mg PO BID Qty: 180 RF: 3 oxybutynin chloride 5 mg tablet 5 mg PO BID Qty: 180 RF: 3 acetaminophen [Arthritis Pain Relief (acetam)] 650 MG tablet extended release 2 tab PO BID PRN PRNRF: 0 ibuprofen 600 mg tablet 600 mg PO TID PRN (Reason: pain) Qty: 90 RF: 0 acetaminophen [Tylenol] 325 mg capsule 650 mg PO Q6H PRN (Reason: pain) Qty: 90 RF: 0 Discharge Instructions Additional Instructions: Your blood work did not show any concerning findings Your cat scan showed evidence of inflammation around the stomach. STart taking the omprazole daily and follow up with your primary care provider. Discuss if you should continue this and possible referral for endscopy if you have severe worsening pain, feel more ill or have new symptoms such as chest pain return to the emergency department Medical Decision Making 68 yo female with 2 prior c sections and appendectomy per pt comes in with chief complaint of nausea and vomit for a week and today started to have loose stools. Denies severe abdominal pain, chest pain, sob, rashes. She denies recent travel or abx.She is in no distress on exam. Her abdomen does have pain on exam withuot guardinging in llq and periumbilical. Given symptoms and exam will tx symptoms and obtain labs and imaging to eval for diverticultiis, sbo among other pathology pt's labs show no significant abnormalities, ua does have evidence of uti but she has no symptoms of a uti. Ct per Dr. Johnson does show inflammation around the stomach, could be ulcer vs inflammation. She is hd stable, mild epigastric tenderness. Will cover for enteritis and also start a ppi and have her f/u with pcp, return precautions given Differential Diagnosis sbo, gastroenteritis, pancreatitis, colitis Medical Records Medical records reviewed: Yes I reviewed the patient's medical records. Imaging Data Radiologic Study: Attestation: I personally reviewed and interpreted this imaging study as follows: Imaging: CT Scan Radiologist's impression: inflammation of stomach per Dr. Johnson Lab Data Lab results reviewed: Yes I reviewed the patient's lab results. ECG Data Attestation: I personally reviewed and interpreted this ECG (s) as follows: Prior ECG tracings: available for review Interpretation: sinus rhythm, rate of 79, no acute st t wave ischemic changes HPI General Mode of arrival: wheelchair. Date/Time Provider Initiated Documentation: 12/10/18 14:27. Limitations to Documentation: no limitations. Information obtained by: patient. History of Present Illness 68 year old F presents to the emergency department with the chief complaint of nausea, described as moderate, Patient started experiencing this week(s) (1) and it has been constant. No relieving factors improve symptom(s), No exacerbating factors reported . Patient notes other (loose stools). Patient did receive the following treatments prior to arrival, none Related Data Home Medications Medication Instructions Recorded Confirmed acetaminophen [Arthritis Pain 2 tab PO BID PRN PRN 11/20/15 11/20/18 Relief (acetam)] Blood Glucose Test #100 strip 10/01/17 11/20/18 blood-glucose meter #1 ea 10/01/17 11/20/18 lancets #400 ea 10/01/17 11/20/18 losartan 50 mg PO BID #180 tab-cap 02/19/18 11/20/18 lorazepam 0.5 mg tablet 0.5 mg PO BID PRN #15 tab 05/20/18 11/20/18 acetaminophen [Tylenol] 650 mg PO Q6H PRN #90 cap 09/23/18 11/20/18 ibuprofen 600 mg PO TID PRN #90 tab 09/23/18 11/20/18 oxybutynin chloride 5 mg tablet 5 mg PO BID #180 tab-cap 11/07/18 11/20/18 cholecalciferol (vitamin D3) 1,000 2,000 unit PO DAILY #180 tab-cap 11/18/18 11/20/18 unit tablet citalopram 40 mg tablet 40 mg PO DAILY #90 tab 11/18/18 11/20/18 prednisone 5 mg tablet 5 mg PO DAILY #30 tab 11/20/18 11/20/18 ciprofloxacin HCl 500 mg PO Q12H #14 tab 12/10/18 metronidazole [Flagyl] 500 mg PO BID #14 tab 12/10/18 omeprazole 20 mg PO DAILY #30 cap 12/10/18 ondansetron HCl 4 mg PO TID-QID PRN #30 tab 12/10/18 Previous Rx's Medication Instructions Recorded Blood Glucose Test #100 strip 10/01/17 blood-glucose meter #1 ea 10/01/17 lancets #400 ea 10/01/17 losartan 50 mg PO BID #180 tab-cap 02/19/18 lorazepam 0.5 mg tablet 0.5 mg PO BID PRN #15 tab 05/20/18 acetaminophen [Tylenol] 650 mg PO Q6H PRN #90 cap 09/23/18 ibuprofen 600 mg PO TID PRN #90 tab 09/23/18 oxybutynin chloride 5 mg tablet 5 mg PO BID #180 tab-cap 11/07/18 cholecalciferol (vitamin D3) 1,000 2,000 unit PO DAILY #180 tab-cap 11/18/18 unit tablet citalopram 40 mg tablet 40 mg PO DAILY #90 tab 11/18/18 prednisone 5 mg tablet 5 mg PO DAILY #30 tab 11/20/18 ciprofloxacin HCl 500 mg PO Q12H #14 tab 12/10/18 metronidazole [Flagyl] 500 mg PO BID #14 tab 12/10/18 omeprazole 20 mg PO DAILY #30 cap 12/10/18 ondansetron HCl 4 mg PO TID-QID PRN #30 tab 12/10/18 Allergies Allergy/AdvReac Type Severity Reaction Status Date / Time Penicillins Allergy Verified 11/20/18 09:01 General Stated Complaint: GenMedical MELISSA: 3 Review of Systems Review of Systems All systems reviewed & are unremarkable except as noted in HPI and below Constitutional Denies chills, Denies fever(s) and Denies weakness Cardiovascular Denies chest pain and Denies dyspnea Respiratory Denies cough and Denies dyspnea Musculoskeletal Denies joint swelling Neurologic Denies weakness [facility] Medical History Trochanteric bursitis, right hip (Chronic) Anxiety (Chronic) Urinary incontinence in female (Chronic) Osteoarthritis (Chronic) Obesity (Chronic 04/19/15) Memory disturbance (Chronic 07/04/16) Medial joint line tenderness of left knee (Chronic 10/17/15) Left hip pain (Chronic) Insomnia (Chronic 04/19/15) Hyperlipidemia (Chronic 04/20/14) History of elevated glucose (Chronic 12/25/17) Fibromyalgia (Chronic 04/19/15) Fatigue due to depression (Chronic 08/31/13) Essential hypertension (Chronic 11/22/15) Depressed mood (Chronic 03/09/16) Controlled type 2 diabetes mellitus (Chronic 10/17/15) Back pain (Chronic) Attention deficit (Chronic 04/06/16) Anxiety and depression (Chronic 10/08/16) Acute intractable tension-type headache (Chronic 02/19/18) Depression Diabetes Hypertension Surgical History History of section (Chronic) section Cystectomy, Mini Lap Ovarian (~05/1967) Elbow surgery (~1991) Hernia repair Ureteroscopy Social History Smoking/Tobacco Use Status: Former Tobacco Use Alcohol Intake: never Drug use: Never Substance use type: does not use Pets and animals: Yes Pets and animals: dog(s) Duration: 15-30 minutes/day Frequency: 3-4 times per week Special edgard needs: No Do you feel safe at home: Yes Do you feel safe in your relationship?: Yes Exam Const General: no acute distress Orientation: alert HENMT Head: normal to inspection Ears: external ears normal General nose exam: external nose normal Mouth: moist mucous membranes Eyes General: appearance normal, both eyes and all related structures Neck Neck: normal visual inspection Resp Effort & Inspection: normal respiratory effort and able to speak in complete sentences Cardio Rate: regular rate GI Palpation: soft Skin General skin exam: no rashes or lesions noted Neuro General: alert and oriented x3 Extrem General: normal to inspection Psych Mental Status: mental status grossly normal Course Vital Signs Temperature 36.4 C L 12/10/18 14:24 Pulse 95 H 12/10/18 14:24 Respiratory Rate 18 12/10/18 14:24 Blood Pressure 139/68 12/10/18 14:24 Pulse Oximetry 97 12/10/18 14:24 Temperature 36.4 C L 12/10/18 14:24 Temperature Source Temporal Artery Scan 12/10/18 14:24 Pulse 95 H 12/10/18 14:24 Respiratory Rate 18 12/10/18 14:24 Respiratory Effort 12/10/18 14:30 Blood Pressure 139/68 12/10/18 14:24 Pulse Oximetry 97 12/10/18 14:24 Oxygen Delivery Method Room Air 12/10/18 14:24 Oxygen Flow Rate 0 12/10/18 14:24
[2018-12-10 15:08] LABS: Abs Immature Grans 0.02 k/cumm (0.0-0.09); Absolute Basophil Count 0.03 k/cumm (0.0-0.2); Absolute Eosinophil Count 0.09 k/cumm (0.0-0.7); Absolute Lymphocyte Count 2.12 k/cumm (1.2-3.4); Absolute Monocyte Count 0.77 k/cumm (0.11-0.7); Absolute Neutrophil Count 5.49 k/cumm (1.2-6.7); Basophils % 0.4; Eosinophils % 1.1; HCT 44.6 % (36.0-46.0); Immature Grans % 0.2; Lymphocytes % 24.9; Mean Corp. HGB Concentration 33.6 g/dL (32.0-36.0); Mean Corpuscular Hemoglobin 30.3 pg (27.0-33.0); Mean Corpuscular Volume 90.1 fL (80-95); Mean Platelet Volume 9.7 fL (8.0-11.0); Neutrophils % 64.4; Platelet Count 302 x1000/uL (130-400); RBC 4.95 m/cumm (4.00-5.20); RBC Distribution Width 12.7 % (11.7-14.6); White Blood Cell Count 8.52 k/cumm (4.4-10.8)
[2018-12-10 15:17] LABS: ALT 18 U/L (12-78); AST 32 U/L (15-37); Albumin 3.7 g/dL (3.4-5.0); Alkaline Phosphatase 59 U/L (46-116); Anion Gap 10.7 mmol/L (3-11); BUN 24 mg/dL (7-18); Bilirubin, Total 0.8 mg/dL (0.2-1.0); CO2 25.3 mmol/L (21.0-32.0); Calcium 10.1 mg/dL (8.5-10.1); Chloride 98 mmol/L (98-107); Glucose 112 mg/dL (70-100); Lipase 195 U/L (73-393); Potassium 4.3 mmol/L (3.5-5.1); Sodium 134 mmol/L (136-145); Total Protein 7.8 g/dL (6.4-8.2)
[2018-12-10 15:19] LABS: INR 1.1 (0.9-1.1); Prothrombin Time 11.2 sec (9.3-11.0)
[2018-12-10] MEDS: Omnipaque 350 MG/ML 100 ML BTL IJ (15:24)
[2018-12-10 15:31] LABS: Bilirubin Moderate (Negative); Blood Moderate (Negative); Clarity Clear; Glucose Negative (Negative); Ketones 40 mg/dL (Negative); Leukocyte Esterase Small (Negative); Nitrite Negative (Negative); Specific Gravity 1.025 (1.005-1.025); pH 5.5 (5-8)
[2018-12-10] MEDS: Normal Saline 1,000 ML 1000 ML IV (15:35)
[2018-12-10] MEDS: Ondansetron 4 MG/2 ML VIAL IVP (15:36)
[2018-12-10 15:42] LABS: Epithelial Cells Few HPF (Negative)
[2018-12-10 15:43] LABS: Bacteria Moderate HPF (Negative); C & S Indicated? Yes; Casts Negative LPF (Negative); Crystals Negative HPF (Negative); Mucus Heavy (Negative); Other Cells Few Renal (Negative)
[2018-12-10 15:51] VITALS: BP 139/74; PULSE 69; RESP 18; TEMP 36.8; O2SAT 97
--- NOTE | 2018-12-10 16:22 | NUR.NOTE ---
patient received discharge and follow up instruction per MD order, patient home with daughter Nursing Note:
== END 2018-12-10 16:17 | disposition home or self-care (01) ==
PROVIDERS: Emergency Provider Emergency Medicine
DX: R11.2 Nausea with vomiting, unspecified (principal); R10.13 Epigastric pain; E11.9 Type 2 diabetes mellitus without complications; I10 Essential (primary) hypertension; R82.71 Bacteriuria
CPT/HCPCS: 36415; 80053; 83690; 93005; 96365; 96374; 99285; 74177; 81003; 81015; 85025; 85610; 85730; 87086; 93010; J2405; J3490

== ENCOUNTER 2018-12-18 09:17 | Outpatient (CLI) | payer MEDICARE, BC, SELFPAY ==
--- NOTE | 2018-12-18 09:22 | DI.RAD_ITS ---
SYMPTOM/DIAGNOSIS: FX RIGHT SHOULDER RIGHT SHOULDER: When compared with the previous examination of 11/20/2018 again noted is the proximal humeral fracture with no change in alignment when compared with the previous images.
== END 2018-12-18 09:37 ==
PROVIDERS: Visit Provider Orthopaedic Surgery
DX: S42.291D Other displaced fracture of upper end of right humerus, subsequent encounter for fracture with routine healing (principal); W00.0XXD Fall on same level due to ice and snow, subsequent encounter; M70.61 Trochanteric bursitis, right hip
CPT/HCPCS: 99213; 73030

== ENCOUNTER 2019-02-04 10:10 | Outpatient (CLI) | payer MEDICARE, BC, SELFPAY ==
--- NOTE | 2019-02-04 09:42 | DI.RAD_ITS ---
SYMPTOMS/DIAGNOSIS: F/U RT HUMERAL HEAD FRACTURE RIGHT SHOULDER: When compared with the previous examination of 12/18/18, there has been no interval change in the status of a fracture of the proximal humerus and there is nothing to suggest that healing is not progressing satisfactorily at the present time.
== END 2019-02-04 10:30 ==
PROVIDERS: Visit Provider Orthopaedic Surgery
DX: S42.291D Other displaced fracture of upper end of right humerus, subsequent encounter for fracture with routine healing (principal); W19.XXXD Unspecified fall, subsequent encounter; E11.9 Type 2 diabetes mellitus without complications; I10 Essential (primary) hypertension
CPT/HCPCS: 99213; 73030

== ENCOUNTER 2019-07-22 09:49 | Outpatient (CLI) | payer MEDICARE, BC, SELFPAY ==
[2019-07-22 10:51] LABS: Hemoglobin A1C 6.2 % (3.8-5.6)
[2019-07-22 11:18] LABS: Cholesterol 231 mg/dL (<200); HDL Cholesterol 33 mg/dL (40-60); Triglyceride 424 mg/dL (<150)
[2019-07-22 11:36] LABS: LDL CHOLESTEROL 136 mg/dL (<100)
[2019-07-22 11:42] LABS: ESR 21 mm/hr (0-30)
[2019-07-22 11:54] LABS: C-Reactive Protein 0.14 mg/dL (0.0-0.3)
[2019-07-23 04:43] LABS: Vitamin D 25 Total 32.8 ng/ml (30-100)
== END 2019-07-22 10:09 ==
PROVIDERS: Family Medicine
DX: I10 Essential (primary) hypertension (principal); E78.5 Hyperlipidemia, unspecified; E55.9 Vitamin D deficiency, unspecified; E11.9 Type 2 diabetes mellitus without complications; F32.9 Major depressive disorder, single episode, unspecified; F41.9 Anxiety disorder, unspecified; M70.61 Trochanteric bursitis, right hip; M62.81 Muscle weakness (generalized)
CPT/HCPCS: 36415; 80061; 82306; 83721; 85652; 83036; 86140; 86431

== ENCOUNTER 2019-10-15 14:31 | Emergency (ER) | payer MEDICARE, BC, SELFPAY ==
[2019-10-15] VITALS (35 sets, daily range): BP systolic 110–148; BP diastolic 53–101; PULSE 72–94; RESP 12–37; TEMP 36.6–37.2; O2SAT 92–98
--- NOTE | 2019-10-15 14:35 | W.ED.GENAD ---
Discharge Plan Disposition Patient Disposition: AGAINST MEDICAL ADVICE Condition: Stable Discharge Details Chief Complaint: SOB Clinical Impression: Atypical chest pain, Abdominal pain, Nausea and vomiting, Dyspnea on exertion Primary Care Provider: Rosa Elena Kingston ED Provider: Hannah Vargas Home Meds and New Rx's Prescriptions: New famotidine [Pepcid] 20 mg tablet 20 mg PO DAILY 14 Days Qty: 14 RF: 0 Continued atorvastatin 10 mg tablet 10 mg PO QHS Qty: 30 RF: 2 (DME) blood-glucose meter Misc 1 ea Miscellaneous DAILY Qty: 1 RF: 0 (DME) blood sugar diagnostic [Blood Glucose Test] Strip 1 ea Miscellaneous DAILY Qty: 100 RF: 12 (DME) lancets 28 gauge misc 1 ea Miscellaneous TID & PRN Qty: 100 RF: 12 cholecalciferol (vitamin D3) 1,000 unit tablet 2,000 unit PO DAILY Qty: 180 RF: 3 losartan 100 mg tablet 100 mg PO DAILY Qty: 90 RF: 3 amitriptyline 10 mg tablet 10 mg PO QHS Qty: 30 RF: 2 ondansetron HCl [Zofran] 4 mg tablet 4 mg PO Q6H PRN (Reason: nausea and vomiting) Qty: 7 RF: 0 oxybutynin chloride 5 mg tablet 5 mg PO BID Qty: 180 RF: 3 acetaminophen [Arthritis Pain Relief (acetam)] 650 MG tablet extended release 2 tab PO BID PRN PRNRF: 0 ibuprofen 600 mg tablet 600 mg PO TID PRN (Reason: pain) Qty: 90 RF: 0 acetaminophen [Tylenol] 325 mg capsule 650 mg PO Q6H PRN (Reason: pain) Qty: 90 RF: 0 Discharge Instructions Instructions: Chest Pain (ED), Acute Nausea and Vomiting (ED), Abdominal Pain (ED) Additional Instructions: You are leaving the hospital AGAINST MEDICAL ADVICE. It is unclear what the cause of your chest heaviness is, as it may be related to your heart or stomach, or another unknown cause. Drink plenty of fluids and get plenty of rest. Continue your zofran as needed and directed for nausea or vomiting. Call your primary care doctor's office tomorrow to schedule a follow-up appointment for reevaluation within the next week. Return immediately to the emergency department if you develop any worsening or concerning symptoms. Discharge Data Discharge Physician: Hannah Vargas Medical Decision Making 1500 -- 68-year-old female with a history of obesity, diabetes, fibromyalgia, hypertension, hyperlipidemia presents for vomiting, chest heaviness and dyspnea on exertion for the past few days. EKG on arrival notes a rate of 82, sinus with less than [address] depression in lateral leads but no acute ST elevation which does look different from previous EKG. She is afebrile. She appears nontoxic. She has significant upper abdominal tenderness. Differential diagnosis includes ACS, gastritis, cholelithiasis, cholecystitis, PUD, gastroenteritis. Will check screening labs and CT chest abdomen pelvis and give Zofran, Pepcid and GI cocktail reassess. 1600 -- labs reviewed. Normal WBC. Troponin negative. 1645 -- pt reassessed - she states pain improved a little bit. Nausea did improve but now returning. Still w/ upper abd tenderness. Will give a dose of reglan and reassess. D/w pt that with her risk factors including diabetes, htn, hld and age, consider admission for serial troponins. Will check a second troponin and ekg. 1800 --CT notes possible gastritis versus duodenitis. There is no PE. patient reassessed --still complaining of some nausea and chest heaviness. Repeat troponin negative. EKG negative for any ST depression or elevation. Advised patient that I recommend admission overnight for serial troponins and observation considering her age and risk factors but she is declining to stay. Despite my efforts, the patient has decided to leave against medical advice. She has a normal mental status and full decisional capacity. The patient understands her condition and the risks of leaving AMA, including BUT NOT LIMITED TO permanent disability, , etc., and has had an opportunity to ask questions about her medical condition. The patient has been informed that she may return for care at any time, and has been referred to her local medical physician for follow up GLEN[facility]. Medical Records Medical records reviewed: Yes I reviewed the patient's medical records. Imaging Data Radiologic Study: Radiologist's impression: CT Angiography Chest With Contrast Exam date and time: 10/15/2019 3:08 PM Age: 68 years old Clinical indication: Other: SOB, chest heaviness, upper abd pain TECHNIQUE: Imaging protocol: Computed tomographic angiography of the chest with intravenous contrast. 3D rendering: MIP and/or 3D reconstructed images were created by the technologist. Radiation optimization: All CT scans at this facility use at least one of these dose optimization techniques: automated exposure control; mA and/or kV adjustment per patient size (includes targeted exams where dose is matched to clinical indication); or iterative reconstruction. Contrast material: OMNIPAQUE 350; Contrast volume: 69 ml; Contrast route: IV; COMPARISON: No relevant prior studies available. FINDINGS: Pulmonary arteries: There are no intraluminal filling defects in the pulmonary arteries. Aorta: The aorta is normal in caliber with no evidence of aneurysm or dissection. The left vertebral artery arises directly from the aortic arch which is a normal variant.The aorta demonstrates moderate atherosclerotic calcification and plaque formation. Lungs: There are no focal air space opacities. There are dependent changes in the lung bases. Pleural space: Unremarkable. No pneumothorax. No pleural effusion. Heart: Unremarkable. No cardiomegaly. No pericardial effusion. Mediastinum: The trachea and main bronchi are patent. Lymph nodes: Unremarkable. No enlarged lymph nodes. Bones/joints: The spine demonstrates mild degenerative changes at multiple levels. No acute osseous abnormality is identified. Soft tissues: Unremarkable. IMPRESSION: 1. No evidence of a pulmonary embolus. 2. No evidence of an acute pulmonary process. Remainder of non-emergent findings as described above. CT Angiography Abdomen With Contrast Exam date and time: 10/15/2019 3:08 PM Age: 68 years old Clinical indication: Other: SOB, chest heaviness, upper abd pain TECHNIQUE: Imaging protocol: Computed tomographic angiography images of the abdomen with intravenous contrast material. 3D rendering: MIP and/or 3D reconstructed images were created by the technologist. Radiation optimization: All CT scans at this facility use at least one of these dose optimization techniques: automated exposure control; mA and/or kV adjustment per patient size (includes targeted exams where dose is matched to clinical indication); or iterative reconstruction. Contrast material: OMNIPAQUE 350; Contrast volume: 69 ml; Contrast route: IV; COMPARISON: No relevant prior studies available. FINDINGS: Aorta: No aortic aneurysm. No aortic dissection. Celiac trunk and mesenteric arteries: No occlusion or significant stenosis. Renal arteries: No occlusion or significant stenosis. Liver: Redemonstration of hypodensities in the liver which are stable and likely represent benign cysts. Gallbladder and bile ducts: Normal. No calcified stones. No ductal dilation. Pancreas: Normal. No ductal dilation. Spleen: Normal. No splenomegaly. Adrenals: Normal. No mass. Kidneys and ureters: There are nonobstructing right intrarenal calculi. Kidneys demonstrate no evidence of hydronephrosis.There is a symmetric renal enhancement pattern bilaterally. Stomach and bowel: There is redemonstration of deformity of the gastroesophageal junction which may be related to prior surgery or normal variant. There is redemonstration of wall edema of the pylorus and duodenum with mild adjacent stranding. There is a persistent medial outpouching at the approximate level of the duodenal bulb (image 33 of series 11).There is no evidence of intestinal obstruction. There is diverticulosis with no evidence of acute diverticulitis. Lymph nodes: Unremarkable. No enlarged lymph nodes. Intraperitoneal space: There is no free intraperitoneal air. There is no evidence of focal rim-enhancing encapsulated fluid collections to suggest drainable abscess formation. Bones/joints: Unremarkable. No acute fracture. No dislocation. Soft tissues: There is an uncomplicated epigastric ventral hernia which is unchanged. IMPRESSION: 1. Redemonstration of wall edema of the pylorus and duodenum with mild adjacent stranding. There is a persistent medial outpouching at the approximate level of the duodenal bulb. The overall appearance suggests gastritis/duodenitis. No evidence of free air. Clinical correlation and follow-up is recommended. 2. There is diverticulosis with no evidence of acute diverticulitis. 3. There is no evidence of bowel obstruction, abscess or free air. 4. There are nonobstructing right intrarenal calculi. Remainder of non-emergent findings as described above. Lab Data Lab results reviewed: Yes I reviewed the patient's lab results. Labs: Laboratory Tests Range/Units 10/15/19 10/15/19 10/15/19 14:45 14:45 14:45 WBC (4.4-10.8) k/cumm 6.12 RBC (4.00-5.20) m/cumm 5.04 Hgb (12.0-15.5) g/dL 15.7 H Hct (36.0-46.0) % 45.9 MCV (80-95) fL 91.1 MCH (27.0-33.0) pg 31.2 MCHC (32.0-36.0) g/dL 34.2 RDW (11.7-14.6) % 13.6 Plt Count (130-400) x1000/uL 275 MPV (8.0-11.0) fL 10.6 Immature Gran % % 0.2 Neutrophils % 62.3 Lymphocytes % 24.7 Monocytes % 11.4 Eosinophils % 0.7 Basophils % 0.7 Absolute Neutrophils (1.2-6.7) k/cumm 3.82 Absolute Lymphocytes (1.2-3.4) k/cumm 1.51 Absolute Monocytes (0.11-0.7) k/cumm 0.70 Absolute Eosinophils (0.0-0.7) k/cumm 0.04 Absolute Basophils (0.0-0.2) k/cumm 0.04 Sodium (136-145) mmol/L 141 Potassium (3.5-5.1) mmol/L 3.4 L Chloride (98-107) mmol/L 100 Carbon Dioxide (21.0-32.0) mmol/L 26.8 Anion Gap (3-11) mmol/L 14.2 H BUN (7-18) mg/dL 16 Creatinine (0.55-1.02) mg/dL 0.85 Estimated GFR/1.73 m2 (mL/min/1.73m2) >= 60.00 Glucose (74-106) mg/dL 122 H Calcium (8.5-10.1) mg/dL 9.9 Magnesium (1.8-2.4) mg/dL 1.8 Total Bilirubin (0.2-1.0) mg/dL 0.6 AST (15-37) U/L 16 ALT (14-59) U/L 21 Alkaline Phosphatase (46-116) U/L 41 L Troponin I (<0.06) ng/Ml < 0.05 Total Protein (6.4-8.2) g/dL 8.2 Albumin (3.4-5.0) g/dL 4.2 Lipase (73-393) U/L 158 Range/Units 10/15/19 17:30 WBC (4.4-10.8) k/cumm RBC (4.00-5.20) m/cumm Hgb (12.0-15.5) g/dL Hct (36.0-46.0) % MCV (80-95) fL MCH (27.0-33.0) pg MCHC (32.0-36.0) g/dL RDW (11.7-14.6) % Plt Count (130-400) x1000/uL MPV (8.0-11.0) fL Immature Gran % % Neutrophils % Lymphocytes % Monocytes % Eosinophils % Basophils % Absolute Neutrophils (1.2-6.7) k/cumm Absolute Lymphocytes (1.2-3.4) k/cumm Absolute Monocytes (0.11-0.7) k/cumm Absolute Eosinophils (0.0-0.7) k/cumm Absolute Basophils (0.0-0.2) k/cumm Sodium (136-145) mmol/L Potassium (3.5-5.1) mmol/L Chloride (98-107) mmol/L Carbon Dioxide (21.0-32.0) mmol/L Anion Gap (3-11) mmol/L BUN (7-18) mg/dL Creatinine (0.55-1.02) mg/dL Estimated GFR/1.73 m2 (mL/min/1.73m2) Glucose (74-106) mg/dL Calcium (8.5-10.1) mg/dL Magnesium (1.8-2.4) mg/dL Total Bilirubin (0.2-1.0) mg/dL AST (15-37) U/L ALT (14-59) U/L Alkaline Phosphatase (46-116) U/L Troponin I (<0.06) ng/Ml < 0.05 Total Protein (6.4-8.2) g/dL Albumin (3.4-5.0) g/dL Lipase (73-393) U/L ECG Data Attestation: I personally reviewed and interpreted this ECG (s) as follows: Interpretation: #1 -- rate of 82, sinus, less than 1mm ST depression in 1, aVL, V4 through V6. No acute ST elevation. T wave inversion in 1, aVL. 166. QTc 430. QRS 94. #2 -- rate of 80, sinus, no acute St elevation or depression. IN 178, QTc 436, QRS 94. HPI General Mode of arrival: ambulatory. Date/Time Provider Initiated Documentation: 10/15/19 14:31. Limitations to Documentation: no limitations. Information obtained by: patient. HPI Narrative: Patient is a 68-year-old female with history of obesity, diabetes, anxiety, depression, hyperlipidemia, fibromyalgia presents with 3 days of nausea, vomiting, chest heaviness and shortness of breath. Patient states her symptoms initially started with nausea. She states she has vomited a total of 2 times which looks like bile. She does admit to one episode of diarrhea. She states her chest heaviness is intermittent and currently 4/10. She states her shortness of breath is worse with exertion. She denies any known fever or cough. She also admits to occasional intermittent upper abdominal pain and states her symptoms could be due to heartburn but she denies any worsening of symptoms with eating. She spoke with her primary care doctor's office yesterday regarding the symptoms and took Zofran with some relief. She denies any leg pain or swelling. Related Data Home Medications Medication Instructions Recorded Confirmed acetaminophen [Arthritis Pain 2 tab PO BID PRN PRN 11/20/15 10/15/19 Relief (acetam)] acetaminophen [Tylenol] 650 mg PO Q6H PRN #90 cap 09/23/18 10/15/19 ibuprofen 600 mg PO TID PRN #90 tab 09/23/18 10/15/19 oxybutynin chloride 5 mg tablet 5 mg PO BID #180 tab-cap 11/07/18 10/15/19 cholecalciferol (vitamin D3) 25 2,000 unit PO DAILY #180 tab-cap 11/18/18 10/15/19 mcg (1,000 unit) tablet amitriptyline 10 mg tablet 10 mg PO QHS #30 tab 06/24/19 10/15/19 losartan 100 mg tablet 100 mg PO DAILY #90 tab 06/24/19 10/15/19 atorvastatin 10 mg tablet 10 mg PO QHS #30 tab 09/01/19 10/15/19 blood sugar diagnostic #100 strip 09/01/19 10/15/19 blood-glucose meter #1 ea 09/01/19 10/15/19 lancets 28 gauge #100 each 09/01/19 10/15/19 ondansetron HCl 4 mg tablet 4 mg PO Q6H PRN #7 tab 10/14/19 10/15/19 famotidine [Pepcid] 20 mg PO DAILY 14 Days #14 tab 10/15/19 Previous Rx's Medication Instructions Recorded acetaminophen [Tylenol] 650 mg PO Q6H PRN #90 cap 09/23/18 ibuprofen 600 mg PO TID PRN #90 tab 09/23/18 oxybutynin chloride 5 mg tablet 5 mg PO BID #180 tab-cap 11/07/18 cholecalciferol (vitamin D3) 25 2,000 unit PO DAILY #180 tab-cap 11/18/18 mcg (1,000 unit) tablet amitriptyline 10 mg tablet 10 mg PO QHS #30 tab 06/24/19 losartan 100 mg tablet 100 mg PO DAILY #90 tab 06/24/19 atorvastatin 10 mg tablet 10 mg PO QHS #30 tab 09/01/19 blood sugar diagnostic #100 strip 09/01/19 blood-glucose meter #1 ea 09/01/19 lancets 28 gauge #100 each 09/01/19 ondansetron HCl 4 mg tablet 4 mg PO Q6H PRN #7 tab 10/14/19 famotidine [Pepcid] 20 mg PO DAILY 14 Days #14 tab 10/15/19 Allergies Allergy/AdvReac Type Severity Reaction Status Date / Time Penicillins Allergy Verified 10/15/19 14:42 General MELISSA: 3 Review of Systems All systems reviewed & are unremarkable except as noted in HPI and below Constitutional Constitutional: Reports as per HPI, Denies chills and Denies fever(s) Eyes Eyes: Denies blurry vision ENT Ears, Nose, Mouth, and Throat: Denies dizziness, Denies sore throat and Denies throat swelling Cardiovascular Cardiovascular: Reports chest pain and Reports dyspnea Respiratory Respiratory: Denies cough and Reports dyspnea Gastrointestinal Gastrointestinal: Denies abdominal pain, Denies diarrhea and Reports vomiting Genitourinary Genitourinary: Denies hematuria and Denies dysuria Musculoskeletal Musculoskeletal: Denies back pain and Denies numbness Integumentary/Breasts Skin/Breast: Denies lesions and Denies rash Neurologic Neurologic: Denies dizziness, Denies localized weakness and Denies numbness Allergic/Immunologic Allergic/Immunologic: Denies throat swelling [facility] Social History Smoking/Tobacco Use Status: Former Tobacco Use Alcohol Intake: never Drug use: Never Substance use type: does not use Pets and animals: Yes Pets and animals: dog(s) Duration: 15-30 minutes/day Frequency: 3-4 times per week Special edgard needs: No Do you feel safe at home: Yes Do you feel safe in your relationship?: Yes Exam Const General: cooperative and no acute distress Orientation: alert, awake and oriented x3 [facility] Head: normal to inspection Face and sinus: normal facial exam Eyes General: appearance normal, both eyes and all related structures EOM: EOM intact bilaterally Neck Neck: normal visual inspection and No submandibular swelling Lymphatic: no lymphadenopathy noted Chest Chest: normal inspection of the chest and no tenderness Resp Effort & Inspection: normal respiratory effort and able to speak in complete sentences Auscultation: clear to auscultation bilaterally Cardio Rate: regular rate Rhythm: regular rhythm GI Inspection: normal to inspection Palpation: soft, not firm, not rigid and tender in the epigastrum, in the LUQ and in the RUQ Auscultation: normal bowel sounds and hypoactive bowel sounds Skin General skin exam: no rashes or lesions noted Neuro General: patient alert, patient awake and patient oriented x3 Cognition: normal cognition Speech: speech normal Motor: muscle tone normal throughout Sensory Exam: no sensory deficits noted Extrem General: normal to inspection, full ROM, capillary refill normal, no calf tenderness bilaterally and no edema Psych Appearance: grossly normal Mental Status: mental status grossly normal Speech and Movement: speech and movement normal Affect: normal affect
--- NOTE | 2019-10-15 15:00 | DI.CT_ITS ---
EXAM: CT CHEST PE ABD PELVIS W CLINICAL HISTORY: sob, chest heaviness, upper abd pain TECHNIQUE: Axial CT angiography was performed with multi-slice acquisition and multi-planar and/or 3 D reconstructions. COMPARISON: CT ABDOMEN PELVIS W from 12/10/2018 FINDINGS: CT examination of the chest, abdomen, and pelvis was performed with a bolus infusion of 69 cc of Omn ipaque 350. The diaphragm is elevated on the right as noted on prior study of December 2018. There is n o evidence of pulmonary embolic disease. Thoracic aorta and major branches appear intact with mild c alcified atheromatous plaque at multiple sites. No mediastinal or hilar adenopathy. Tracheobronchia l tree appears intact. Lungs appear generally clear. No pleural effusion. Small low-attenuation hepatic lesions again noted, unchanged, consistent with cysts. Spleen is unrem arkable. Pancreas appears normal. Gallbladder and bile ducts appear intact. Note is made of an apparent hiatal hernia. There is wall thickening of the duodenal bulb and distal gastric antrum with associated increased fat attenuation, the findings are suggestive of an acute inf lammatory process. Other etiologies including neoplasm not excluded, similar findings were observed on prior CT of December 2018. Correlation with endoscopy recommended. Abdominal aorta and major branches appear intact with mild calcified atheromatous changes. Non obstr ucting right renal calculi noted. No other significant renal or adrenal abnormality seen. No abdomi nal or pelvic adenopathy. [employer] Dra[employer] structures grossly unremarkable by CT criteria. Appendix is not specifically visualized but there is no evidence of appendicitis or diverticulitis. No significant abdominal wall hernia seen. IMPRESSION: Findings of wall thickening and Smita visceral increased fat attenuation of the gastric antrum and pro ximal duodenum are consistent with inflammatory process, no evidence of perforation or abscess format ion. No free air in the peritoneal cavity. Correlation with endoscopy suggested to exclude neoplast ic disease. Nonobstructing right renal calculi noted. No significant findings on scanning of the thorax.
[2019-10-15] MEDS: Normal Saline 1,000 ML 1000 ML IV (15:20)
[2019-10-15] MEDS: Ondansetron 4 MG/2 ML VIAL IVP (15:21)
[2019-10-15] MEDS: FAMOTIDINE 20 MG/50 ML BAG 200 MG IVPB (15:21)
[2019-10-15 15:35] LABS: Abs Immature Grans 0.01 k/cumm (0.0-0.09); Absolute Basophil Count 0.04 k/cumm (0.0-0.2); Absolute Eosinophil Count 0.04 k/cumm (0.0-0.7); Absolute Lymphocyte Count 1.51 k/cumm (1.2-3.4); Absolute Neutrophil Count 3.82 k/cumm (1.2-6.7); Basophils % 0.7; Eosinophils % 0.7; HCT 45.9 % (36.0-46.0); HGB 15.7 g/dL (12.0-15.5); Immature Grans % 0.2 %; Lymphocytes % 24.7; Mean Corp. HGB Concentration 34.2 g/dL (32.0-36.0); Mean Corpuscular Hemoglobin 31.2 pg (27.0-33.0); Mean Corpuscular Volume 91.1 fL (80-95); Mean Platelet Volume 10.6 fL (8.0-11.0); Monocytes % 11.4; Neutrophils % 62.3; Platelet Count 275 x1000/uL (130-400); RBC 5.04 m/cumm (4.00-5.20); RBC Distribution Width 13.6 % (11.7-14.6); White Blood Cell Count 6.12 k/cumm (4.4-10.8)
[2019-10-15 15:50] LABS: Lipase 158 U/L (73-393)
[2019-10-15 15:59] LABS: ALT 21 U/L (14-59); AST 16 U/L (15-37); Albumin 4.2 g/dL (3.4-5.0); Alkaline Phosphatase 41 U/L (46-116); Anion Gap 14.2 mmol/L (3-11); BUN 16 mg/dL (7-18); Bilirubin, Total 0.6 mg/dL (0.2-1.0); CO2 26.8 mmol/L (21.0-32.0); CREATININE 0.85 mg/dL (0.55-1.02); Calcium 9.9 mg/dL (8.5-10.1); Chloride 100 mmol/L (98-107); Glucose 122 mg/dL (74-106); Magnesium 1.8 mg/dL (1.8-2.4); Potassium 3.4 mmol/L (3.5-5.1); Sodium 141 mmol/L (136-145); Total Protein 8.2 g/dL (6.4-8.2)
[2019-10-15 16:01] LABS: Troponin I < 0.05 ng/Ml (<0.06)
[2019-10-15] MEDS: Omnipaque 350 MG/ML 100 ML BTL IJ (16:32)
[2019-10-15] MEDS: Normal Saline - Diluent 50 ML VIAL IV (16:38)
[2019-10-15] MEDS: Normal Saline Flush 10 ML SYR IVP (16:39)
--- NOTE | 2019-10-15 17:06 | DI.VRAD_ITS ---
PROCEDURE INFORMATION: Exam: CT Angiography Chest With Contrast Exam date and time: 10/15/2019 3:08 PM Age: 68 years old Clinical indication: Other: SOB, chest heaviness, upper abd pain TECHNIQUE: Imaging protocol: Computed tomographic angiography of the chest with intravenous contrast. 3D rendering: MIP and/or 3D reconstructed images were created by the technologist. Radiation optimization: All CT scans at this facility use at least one of these dose optimization techniques: automated exposure control; mA and/or kV adjustment per patient size (includes targeted exams where dose is matched to clinical indication); or iterative reconstruction. Contrast material: OMNIPAQUE 350; Contrast volume: 69 ml; Contrast route: IV; COMPARISON: No relevant prior studies available. FINDINGS: Pulmonary arteries: There are no intraluminal filling defects in the pulmonary arteries. Aorta: The aorta is normal in caliber with no evidence of aneurysm or dissection. The left vertebral artery arises directly from the aortic arch which is a normal variant.The aorta demonstrates moderate atherosclerotic calcification and plaque formation. Lungs: There are no focal air space opacities. There are dependent changes in the lung bases. Pleural space: Unremarkable. No pneumothorax. No pleural effusion. Heart: Unremarkable. No cardiomegaly. No pericardial effusion. Mediastinum: The trachea and main bronchi are patent. Lymph nodes: Unremarkable. No enlarged lymph nodes. Bones/joints: The spine demonstrates mild degenerative changes at multiple levels. No acute osseous abnormality is identified. Soft tissues: Unremarkable. IMPRESSION: 1. No evidence of a pulmonary embolus. 2. No evidence of an acute pulmonary process. Remainder of non-emergent findings as described above. PROCEDURE INFORMATION: Exam: CT Angiography Abdomen With Contrast Exam date and time: 10/15/2019 3:08 PM Age: 68 years old Clinical indication: Other: SOB, chest heaviness, upper abd pain TECHNIQUE: Imaging protocol: Computed tomographic angiography images of the abdomen with intravenous contrast material. 3D rendering: MIP and/or 3D reconstructed images were created by the technologist. Radiation optimization: All CT scans at this facility use at least one of these dose optimization techniques: automated exposure control; mA and/or kV adjustment per patient size (includes targeted exams where dose is matched to clinical indication); or iterative reconstruction. Contrast material: OMNIPAQUE 350; Contrast volume: 69 ml; Contrast route: IV; COMPARISON: No relevant prior studies available. FINDINGS: Aorta: No aortic aneurysm. No aortic dissection. Celiac trunk and mesenteric arteries: No occlusion or significant stenosis. Renal arteries: No occlusion or significant stenosis. Liver: Redemonstration of hypodensities in the liver which are stable and likely represent benign cysts. Gallbladder and bile ducts: Normal. No calcified stones. No ductal dilation. Pancreas: Normal. No ductal dilation. Spleen: Normal. No splenomegaly. Adrenals: Normal. No mass. Kidneys and ureters: There are nonobstructing right intrarenal calculi. Kidneys demonstrate no evidence of hydronephrosis.There is a symmetric renal enhancement pattern bilaterally. Stomach and bowel: There is redemonstration of deformity of the gastroesophageal junction which may be related to prior surgery or normal variant. There is redemonstration of wall edema of the pylorus and duodenum with mild adjacent stranding. There is a persistent medial outpouching at the approximate level of the duodenal bulb (image 33 of series 11).There is no evidence of intestinal obstruction. There is diverticulosis with no evidence of acute diverticulitis. Lymph nodes: Unremarkable. No enlarged lymph nodes. Intraperitoneal space: There is no free intraperitoneal air. There is no evidence of focal rim-enhancing encapsulated fluid collections to suggest drainable abscess formation. Bones/joints: Unremarkable. No acute fracture. No dislocation. Soft tissues: There is an uncomplicated epigastric ventral hernia which is unchanged. IMPRESSION: 1. Redemonstration of wall edema of the pylorus and duodenum with mild adjacent stranding. There is a persistent medial outpouching at the approximate level of the duodenal bulb. The overall appearance suggests gastritis/duodenitis. No evidence of free air. Clinical correlation and follow-up is recommended. 2. There is diverticulosis with no evidence of acute diverticulitis. 3. There is no evidence of bowel obstruction, abscess or free air. 4. There are nonobstructing right intrarenal calculi. Remainder of non-emergent findings as described above. Dictated and Authenticated by: Nadia Heaton MD. Ordering:PAWEL Young MD
[2019-10-15] MEDS: Metoclopramide 10 MG/2 ML VIAL IVP (17:08)
[2019-10-15 18:00] LABS: Troponin I < 0.05 ng/Ml (<0.06)
== END 2019-10-15 18:45 | disposition left against medical advice (07) ==
PROVIDERS: Emergency Provider Physician Assistant
DX: R07.89 Other chest pain (principal); R10.10 Upper abdominal pain, unspecified; R11.2 Nausea with vomiting, unspecified; R06.09 Other forms of dyspnea; Z53.29 Procedure and treatment not carried out because of patient's decision for other reasons; E11.9 Type 2 diabetes mellitus without complications
CPT/HCPCS: 71275; 74177; 80053; 83690; 93005; 96361; 96365; 96375; 99285; 83735; 84484; 85025; 93010; 99284; J2405; J2765; J3490

== ENCOUNTER 2020-12-10 12:53 | Emergency (ER) | payer MEDICARE, BC, SELFPAY ==
[2020-12-10] VITALS (34 sets, daily range): BP systolic 107–148; BP diastolic 56–84; PULSE 61–82; RESP 5–26; TEMP 36.5; O2SAT 88–99
--- NOTE | 2020-12-10 12:45 | RT.EKG_ITS ---
APPROVED REPORT Exam: Resting ECG Reason for Exam: cardiac event Patient Location: E HR:65 bpm ECG Measurements Heart Rate 65 AXIS MD 216 P 36 QRSd 81 QRS -42 QT 409 T -7 QTc 425 Conclusion Sinus rhythm...normal P axis, V-rate 60- 99 Borderline prolonged MD interval...MD >212, V-rate 50- 90 Inferior infarct, old...Q >35mS, II III aVF. Prolonged MD interval. No STEMI. I have reviewed and interpreted ECG and agree with software generated interpretation.
--- NOTE | 2020-12-10 12:59 | W.ED.GENAD ---
Discharge Plan Disposition Patient Disposition: [facility] Condition: Serious Discharge Details Clinical Impression: Syncope, Asystole by electrocardiogram Primary Care Provider: Rosa Elena Kingston ED Provider: Airam Neff Home Meds and New Rx's Prescriptions: No Action (DME) blood-glucose meter Misc 1 ea Miscellaneous DAILY Qty: 1 RF: 0 (DME) Blood Glucose Test Strip 1 ea Miscellaneous DAILY Qty: 100 RF: 12 (DME) lancets 28 gauge misc 1 ea Miscellaneous TID & PRN Qty: 100 RF: 12 atorvastatin 10 mg tablet 10 mg PO QHS Qty: 90 RF: 3 amitriptyline 25 mg tablet 25 mg PO QHS Qty: 90 RF: 3 cholecalciferol (vitamin D3) 25 mcg (1,000 unit) tablet 2,000 unit PO DAILY Qty: 180 RF: 3 losartan 100 mg tablet 100 mg PO DAILY Qty: 90 RF: 3 metoprolol succinate 25 mg tablet extended release 24 hr 25 mg PO DAILY Qty: 90 RF: 3 oxybutynin chloride 5 mg tablet 5 mg PO BID Qty: 180 RF: 3 gabapentin 100 mg capsule 200 mg PO TID Qty: 120 RF: 2 ondansetron HCl [Zofran] 4 mg tablet 4 mg PO Q6H PRN (Reason: nausea and vomiting) Qty: 7 RF: 0 ibuprofen 600 mg tablet 600 mg PO TID PRN (Reason: pain) Qty: 90 RF: 0 acetaminophen [Tylenol] 325 mg capsule 650 mg PO Q6H PRN (Reason: pain) Qty: 90 RF: 0 Discharge Data Discharge Date/Time-TO BE ENTERED AT DEPARTURE: 12/10/20 15:39 Medical Decision Making <ELIZABETH Vargas - Last Filed: 12/11/20 19:30> Patient is a pleasant 70-year-old female brought in via EMS after having 2 syncopal episodes at home and then subsequently went unresponsive in asystole in the ambulance on route here. Past medical history is pertinent for anxiety, depression, type 2 diabetes, hypertension, fibromyalgia, hyperlipidemia. Patient had recent increase in her gabapentin dosing. Episodes were witnessed this morning by her daughter. EMS reports the patient was able to ambulate stated to the stretcher. Have been hemodynamically stable with normal initial EKG. However, while in route here patient suddenly became unresponsive and had episode of asystole. During this time, compressions were performed and patient spontaneously regained ROSC and mentation. Patient's current complaint is chest discomfort which is new since CPR was performed. She is not endorsing any shortness of breath. Patient is on 2 L nasal cannula. Patient denies any chest pain, shortness of breath, nausea, vomiting, change in bowel or bladder habits. Denies any lower extremity swelling. No headaches, visual change, weakness. Patient states that 2 sets of IV access were obtained. Patient placed on pacer pads. Will remain on cardiac monitoring. On exam, patient is pale. She is A&O x 3. She is moving all extremities. Lungs are clear. Normal respiratory effort. Pain with palpation of chest wall. Normal cardiac auscultation, no murmurs rubs or gallops. Spoke with patient daughter, Lorena, . She reports that three times this morning the patient was unresponsive and quivering followed by no movement. She states that she was yelling at her mother and she could not wake her up. Had nausea/vomiting this morning x 1. She had 1 antiemetic this AM. She states that she initially was briefly confused and they came back to normal. During the 3rd episode, patient first reported, it is coming on again and then had another unresponsive episode. This lasted about 1.5 - 2 minutes. Was very disoriented after. ECG was reviewed by Dr. Vargas. She addvised signficant for prolonged NE of 216, otherwise no significant abnormalities. No acute ischemic changes. ABG obtained. Significant for lactate of 2.4, otherwise no significant abnormality. Patient brought in from the nursing staff, had a few episodes of bradycardia and again went into asystole lasting 26 seconds. CPR was begun after no pulses palpated. Prepared to begin ACLS and patient again woke up. Will repeat EKG. She again appears to be in normal sinus rhythm. Is anxious but otherwise feeling well. Repeat EKG was obtained. Patient is in normal sinus rhythm with a rate of 68. NE 139. No acute ischemic changes noted. Consulted with [facility] regarding [place] for continued cardiac care and evaluation by electrophysiology. There are capacity unable to accept the patient. Have requested transfer to [facility]. They will try to arrange for flight for the patient in transport. Consulted with Dr. Milner with MICU at [facility]. He ensured pads were placed on patient. Liliya needs pacer. Patient had another episode. During this time, the patient bradycardia down to 28. She did maintain her mentation. She was endorsing shortness of breath and felt like an elephant sitting on my chest. We prepped to begin the patient on external pacing when her heart rate came back up into the 70s and her symptoms resolved. Contacted by flight, they have bad weather and are uanble to transfer the patient. Will plan to obtain ground crew. [facility] ground unavailable. Patient had another episode. This time, her bradycardia lasted longer. She began to have less cognition. External pacing was begun by myself at 60 and 60. She had good capture. Prior to being able to administer atropine, patient began to over ride the pacer. This was turned off, she had HR again in the 70s and normal BP. Liliya continues to endorse CP. Spoke again with Dr. Milner. In particular, we discussed the patient's pain. It is difficult to decifer if htis is from the multiple rounds of CPR or if this is from cardiac pathology such as ACS. We are both concerned about giving the patient medications that may increase her risk of hemodynamic instability. Hesitant to give nitro at this time for this reason. He advised small dose of Fentanyl. He also advised consultation with cardiology. I spoke with the patient and her daughter about CODE STATUS. Patient would want to be a full code. Spoke with Dr. Jerry with cardiology. He had no further recommendations aside from potential temporary wire for transvenous pacing. However, as there is transfer available now, we do not want to delay transfer. If patient has another episode en route, transcutaneous pacing may be started of standard ACLS treatment. Discussed transfer at length with the patient noe hair. Also discussed plan with paramedics if patient continues to have these episodes en route. All questions and concerns addressed. at the time of transfer, patient is comfortable and stable. All ECG were reviewed by Dr. Vargas. Case was discussed with her. Please see her interpretation of ECG. <Hannah Vargas DO - Last Filed: 12/11/20 14:48> I have seen and examined this patient. I discussed case and reviewed note with ELIZABETH Neff and I agree with plan and note as documented. 70-year-old female with multiple episodes today of syncope and asystole which lasted for several seconds and then resolved. She had 1 episode en route with chest compressions only and she became completely awake and alert. She had one episode shortly after arrival here in the ED treated with chest compressions for a few seconds and then she is awake and alert. Vitals within normal limits after this episode in the ED. She had 2-3 more episodes here in the ED without syncope but with bradycardia into the 20s. Please see Airam Neff'devante for additional details. Pt's provider Airam Neff discussed with [facility] cardiology who considered possibility of transvenous pacing. although they acknowledge this is not without risks as well. Patient's vitals are within normal limits at this time. The medic team is here to transport patient to [facility] as [facility] is not flying due to weather. In light of the fact that patient is now hemodynamically stable and [facility] with plan to start transcutaneous pacing if needed, we will not hold patient here for placement of transvenous pacer as she needs to emergently get to [facility]. Medical Records Medical records reviewed: Yes I reviewed the patient's medical records. HPI <ELIZABETH Vargas - Last Filed: 12/11/20 19:30> General Mode of arrival: EMS. Date/Time Provider Initiated Documentation: 12/10/20 12:59. Limitations to Documentation: no limitations. Information obtained by: patient, family (daughter), EMS, RN notes reviewed and old records reviewed. History of Present Illness 70 year old F presents to the emergency department with the chief complaint of syncope, described as moderate, with intensity rated at 5. Quality is described as aching, and is localized to the chest (associates with CPR preformed en route, no pain when at home). Patient reports no radiation. Patient started experiencing this minute(s) and it has been intermittent (2 episodes of syncope prior to calling EMS). No relieving factors improve symptom(s), No exacerbating factors reported . Patient notes chest pain (denied chest pain prior to syncope, only since CPR) and syncope; denies cough, diaphoresis, fever/chills, headaches, malaise, nausea/vomiting, rash, seizure, shortness of breath and weakness. Patient did receive the following treatments prior to arrival, other (received 1min of CPR prior to arrival when patient had 30 sec of asystole) Related Data Home Medications Medication Instructions Recorded Confirmed acetaminophen [Tylenol] 650 mg PO Q6H PRN #90 cap 09/23/18 12/10/20 ibuprofen 600 mg PO TID PRN #90 tab 09/23/18 12/10/20 blood sugar diagnostic #100 strip 09/01/19 12/10/20 blood-glucose meter #1 ea 09/01/19 12/10/20 lancets 28 gauge #100 each 09/01/19 12/10/20 ondansetron HCl 4 mg tablet 4 mg PO Q6H PRN #7 tab 10/14/19 12/10/20 atorvastatin 10 mg tablet 10 mg PO QHS #90 tab 08/08/20 12/10/20 amitriptyline 25 mg tablet 25 mg PO QHS #90 tab 09/22/20 12/10/20 cholecalciferol (vitamin D3) 25 2,000 unit PO DAILY #180 tab-cap 09/22/20 12/10/20 mcg (1,000 unit) tablet losartan 100 mg tablet 100 mg PO DAILY #90 tab 09/22/20 12/10/20 metoprolol succinate 25 mg 25 mg PO DAILY #90 tab 09/22/20 12/10/20 tablet,extended release 24 hr oxybutynin chloride 5 mg tablet 5 mg PO BID #180 tab-cap 09/22/20 12/10/20 gabapentin 100 mg capsule 200 mg PO TID #120 cap 12/01/20 12/10/20 Previous Rx's Medication Instructions Recorded acetaminophen [Tylenol] 650 mg PO Q6H PRN #90 cap 09/23/18 ibuprofen 600 mg PO TID PRN #90 tab 09/23/18 blood sugar diagnostic #100 strip 09/01/19 blood-glucose meter #1 ea 09/01/19 lancets 28 gauge #100 each 09/01/19 ondansetron HCl 4 mg tablet 4 mg PO Q6H PRN #7 tab 10/14/19 atorvastatin 10 mg tablet 10 mg PO QHS #90 tab 08/08/20 amitriptyline 25 mg tablet 25 mg PO QHS #90 tab 09/22/20 cholecalciferol (vitamin D3) 25 2,000 unit PO DAILY #180 tab-cap 09/22/20 mcg (1,000 unit) tablet losartan 100 mg tablet 100 mg PO DAILY #90 tab 09/22/20 metoprolol succinate 25 mg 25 mg PO DAILY #90 tab 09/22/20 tablet,extended release 24 hr oxybutynin chloride 5 mg tablet 5 mg PO BID #180 tab-cap 09/22/20 gabapentin 100 mg capsule 200 mg PO TID #120 cap 12/01/20 Allergies Allergy/AdvReac Type Severity Reaction Status Date / Time Penicillins Allergy Verified 12/10/20 12:59 General Stated Complaint: Dizzy/Sync MELISSA: 2 Review of Systems <ELIZABETH Vargas - Last Filed: 12/11/20 19:30> Constitutional Constitutional: Reports as per HPI, Denies chills, Denies fever(s), Denies frequent falls, Denies headache(s), Denies lethargy and Denies poor appetite Eyes Eyes: Denies change in vision ENT Ears, Nose, Mouth, and Throat: Denies vertigo, Denies dizziness and Denies headache(s) Cardiovascular Cardiovascular: Reports as per HPI, Denies chest pain, Denies chest pain with activity, Reports syncope, Denies edema, Denies leg edema, Denies lightheadedness, Denies radiating jaw, neck or arm pain, Denies palpitations, Denies dyspnea and Denies dyspnea on exertion Respiratory Respiratory: Reports as per HPI, Denies chest congestion, Denies cough, Denies pain on inspiration, Denies pain with cough, Denies dyspnea, Denies dyspnea on exertion and Denies wheezing Gastrointestinal Gastrointestinal: Reports as per HPI, Denies abdominal pain, Denies diarrhea, Denies nausea and Denies vomiting Genitourinary Genitourinary: Reports system reviewed and no additional complaints, except as documented (denies any change in urinary habits) Musculoskeletal Musculoskeletal: Reports as per HPI, Denies abnormal gait and Denies back pain Integumentary/Breasts Skin/Breast: Reports as per HPI and Denies rash Neurologic Neurologic: Reports as per HPI, Denies abnormal gait, Denies confusion, Denies vertigo, Denies dizziness, Reports syncope, Denies frequent falls and Denies headache(s) Psychiatric Psychiatric: Denies confusion Endocrine Endocrine: Denies palpitations Allergic/Immunologic Allergic/Immunologic: Denies wheezing PFSH <ELIZABETH Vargas - Last Filed: 12/11/20 19:30> Medical History Acute intractable tension-type headache (02/19/18) Anxiety Anxiety and depression (10/08/16) Arthralgia shoulders and hips Attention deficit (04/06/16) Back pain Calculus of kidney (03/17/12) Concussion (08/10/16) Controlled diabetes mellitus Controlled type 2 diabetes mellitus (10/17/15) Cough (07/04/16) Depressed mood (03/09/16) Depression Diabetes Essential hypertension (11/22/15) Fatigue due to depression (08/31/13) Fibromyalgia (04/19/15) History of elevated glucose (12/25/17) Hyperlipidemia (04/20/14) Hyperplastic colon polyp Hypertension Insomnia (04/19/15) Left hip pain Medial joint line tenderness of left knee (10/17/15) Medication care plan discussed with patient Memory disturbance (07/04/16) Obesity (04/19/15) Osteoarthritis Trochanteric bursitis, right hip Injected 09/11/2018 Urinary incontinence in female Urinary tract infection Surgical History section 04/06/87;10/06/80 Cystectomy, Mini Lap Ovarian (~05/1967) Elbow surgery (~1991) left excision bone Hernia repair x 2 History of section Ureteroscopy 10/2011-STENT PLACEMENT-RIGHT URETER Family History Mother No problems noted. Father Heart disease Neoplasm TESTICULAR Sister Neoplasm COLON Brother Neoplasm COLON Social History Smoking/Tobacco Use Status: Former Tobacco Use Second Hand Exposure: No Smoking risk assessment performed?: Yes Alcohol Intake: never Drug use: Never Substance use type: does not use Counseling given: No Counseling provided: none Caregiver/Support person: No Household members: spouse Housing: house Do you need help understanding health information?: Rarely Pets and animals: Yes Pets and animals: dog(s) Sexually active: No Do you think of yourself as: straight/heterosexual Current gender identity: female What is your relationship status?: How often do you talk on the phone with friends or family?: once per week How often do you get together with friends or relatives?: once per week How often do you attend alevism or restorationism services?: decline to answer Do you belong to any clubs or organized social groups?: no Panel score (0-1 are the most socially isolated patients): 1 What type of physical activity do you participate in: walking Duration: 15-30 minutes/day Frequency: daily Vandana/Episcopalian: [employer] Special vandana needs: No Seatbelt use: always Helmet use: No Drive intox or ride w/intox class b truck driver: No Do you feel safe at home: Yes Do you feel safe in your relationship?: Yes Exam <ELIZABETH Vargas - Last Filed: 12/11/20 19:30> Const General: cooperative, not healthy appearing, uncomfortable, no acute distress, well developed, anxious and ill appearing acutely Nutritional Appearance: well nourished and overweight Orientation: alert, awake and oriented x3 HENMT Head: normal to inspection, no palpable skull fracture, normocephalic, atraumatic, no contusions and no palpable skull fracture Ears: hearing grossly normal bilaterally, external ears normal and TM's normal bilaterally Face and sinus: normal facial exam Mouth: oral mucosae normal and tongue normal (no bite miller) Eyes General: appearance normal, both eyes and all related structures Alignment and Position: alignment normal and position normal Pupils: PERRL EOM: EOM intact bilaterally Chest Chest: normal inspection of the chest, normal palpation of entire chest wall and no crepitus Resp Effort & Inspection: normal respiratory effort, able to speak in complete sentences and no respiratory distress Auscultation: clear to auscultation bilaterally, no rales, no rhonchi and no wheezes Cardio Rate: regular rate Rhythm: regular rhythm Heart Sounds: S1 normal and S2 normal GI Inspection: normal to inspection, no edema and non-distended Palpation: soft, no hepatosplenomegaly, not firm, no guarding, not rigid and nontender Auscultation: normal bowel sounds Back/Spine/Pelvis Back: no CVA tenderness Thoracic/Lumbar Spine: thoracic and lumbar spine normal to inspection Skin General skin exam: no rashes or lesions noted Trauma: no lacerations or abrasions Neuro General: patient alert, patient awake, patient oriented x3 and CN's II-XI intact bilaterally Cognition: normal cognition Speech: speech normal Motor: muscle tone normal throughout, strength 5/5 throughout (4/5 throughout, patient appears fatigued), no pronator drift, no movement abnormalities noted and no fasciculations Sensory Exam: no sensory deficits noted Extrem General: normal to inspection, capillary refill normal, no pedal edema, no calf tenderness and normal gait Psych Appearance: grossly normal and well kempt Mental Status: mental status grossly normal Speech and Movement: speech and movement normal Course <ELIZABETH Vargas - Last Filed: 12/11/20 19:30> Vital Signs Vital signs: Vital Signs Temperature 36.5 C 12/10/20 12:53 Pulse 68 12/10/20 12:53 Respiratory Rate 18 12/10/20 12:53 Pulse Oximetry 97 12/10/20 12:53 Temperature 36.5 C 12/10/20 12:53 Temperature Source Skin 12/10/20 12:53 Pulse 68 12/10/20 12:53 Respiratory Rate 18 12/10/20 12:53 Blood Pressure Position Sitting 12/10/20 12:53 Pulse Oximetry 97 12/10/20 12:53 Oxygen Delivery Method Room Air 12/10/20 12:53 Oxygen Flow Rate 0 12/10/20 12:53 Pain Level 5 12/10/20 12:53 Critical Care Time <ELIZABETH Vargas - Last Filed: 12/11/20 19:30> Critical Care Time Critical Care Time: Yes Total Critical Care Time: 60 Attestation: 60 minutes of visit was spent preforming critical care by myself.
[2020-12-10 13:14] LABS: BE -1 mmol/L (-2-3); HCO3 23 mmol/L (22-26); pCO2 32 mmHg (35-45); pH 7.47 (7.35-7.45); pO2 168 mmHg (80-105)
[2020-12-10 13:16] LABS: FIO2L 3.5 L; Site Left Radial; sO2 > 99 % (95-98)
[2020-12-10 13:18] LABS: Abs Immature Grans 0.03 10^3/uL (0.0-0.06); Absolute Basophil Count 0.07 10^3/uL (0.0-0.2); Absolute Eosinophil Count 0.05 10^3/uL (0.0-0.7); Absolute Lymphocyte Count 1.06 10^3/uL (1.2-3.4); Absolute Monocyte Count 0.32 10^3/uL (0.1-0.8); Absolute Neutrophil Count 2.97 10^3/uL (1.2-6.7); Basophils % 1.6; Eosinophils % 1.1; HCT 42.6 % (36.0-46.0); HGB 14.4 g/dL (11.2-15.7); Immature Grans % 0.7; Lymphocytes % 23.6; MCH 30.3 pg (27.0-33.0); MCHC 33.8 % (32.0-36.0); MCV 89.5 fL (80-95); MPV 9.8 fL (8.0-11.0); Monocytes % 7.1; Neutrophils % 65.9; Nucleated RBC 0 %; Platelet Count 238 10^3/uL (130-400); RBC 4.76 10^6/uL (3.93-5.22); RDW-SD 39.1 fL
--- NOTE | 2020-12-10 13:22 | DI.RAD_ITS ---
Exam(s) XR PORTABLE CHEST AP EXAM: XR PORTABLE CHEST AP CLINICAL HISTORY: syncope. TECHNIQUE: 2D digital imaging was performed. COMPARISON: CR ABD FLAT UPRIGHT PA CHEST from 03/29/2012 FINDINGS: LUNGS: Clear. No pleural abnormality seen. HEART: Normal. MEDIASTINUM: Normal. OTHER FINDINGS: None. IMPRESSION: No acute pulmonary findings. DATA REPOSITORY: RADIATION DOSE DELIVERED: Total DLP
[2020-12-10 13:33] LABS: ALT 19 U/L (14-59); AST 14 U/L (15-37); Albumin 3.7 g/dL (3.4-5.0); Alkaline Phosphatase 41 U/L (46-116); Anion Gap 9.7 mmol/L (3-11); BUN 15 mg/dL (7-18); Bilirubin, Total 0.5 mg/dL (0.2-1.0); CO2 25.3 mmol/L (21.0-32.0); Calcium 9.2 mg/dL (8.5-10.1); Chloride 102 mmol/L (98-107); Estimated GFR 54.66 (mL/min/1.73m2); Glucose 174 mg/dL (74-106); Magnesium 1.7 mg/dL (1.8-2.4); Potassium 4.4 mmol/L (3.5-5.1); Sodium 137 mmol/L (136-145); Total Protein 7.2 g/dL (6.4-8.2)
[2020-12-10 13:34] LABS: Troponin I < 0.05 ng/mL (<0.06)
[2020-12-10 13:40] LABS: Bilirubin Negative (Negative); Blood Large (Negative); Clarity Clear (Clear); Glucose Negative (Negative); Ketones 15 mg/dL (Negative); Leukocyte Esterase Trace (Negative); Nitrite Positive (Negative); Urobilinogen 0.2 EU/dL (Up TO 0.2)
[2020-12-10 13:41] LABS: INR 1.1 (0.9-1.1); PTT Activated 21.8 sec (21.0-27.5); Prothrombin Time 10.6 sec (9.3-11.0)
--- NOTE | 2020-12-10 13:45 | RT.EKG_ITS ---
APPROVED REPORT Exam: Resting ECG Reason for Exam: syncope Patient Location: E HR:68 bpm ECG Measurements Heart Rate 68 AXIS CA 139 P -87 QRSd 83 QRS -42 QT 400 T 2 QTc 424 Conclusion Sinus or ectopic atrial rhythm...P axis (-45,135) Inferior infarct, old...Q >35mS, II III aVF No STEMI. I have reviewed and interpreted ECG and agree with software generated interpretation.
[2020-12-10 13:47] LABS: Bacteria Many HPF (Negative); C & S Indicated? Yes; Casts Negative LPF (Negative); Crystals Negative HPF (Negative); Epithelial Cells Few HPF (Negative); Mucus Trace (Negative); RBC >50 HPF (0-2)
--- NOTE | 2020-12-10 14:30 | RT.EKG_ITS ---
APPROVED REPORT Exam: Resting ECG Reason for Exam: cardiac event Patient Location: E HR:72 bpm ECG Measurements Heart Rate 72 AXIS CO 205 P 27 QRSd 82 QRS -46 QT 359 T 16 QTc 394 Conclusion Sinus rhythm...normal P axis, V-rate 60- 99 Inferior infarct, old...Q >35mS, II III aVF. No STEMI. I have reviewed and interpreted ECG and agree with software generated interpretation.
[2020-12-10] MEDS: Ondansetron 4 MG/2 ML VIAL (15:14)
[2020-12-10] MEDS: fentaNYL 100 MCG/2 ML VIAL (15:29)
[2020-12-10 15:40] LABS: Troponin I < 0.05 ng/mL (<0.06)
--- NOTE | 2020-12-12 08:56 | NUR.NOTE ---
Nursing Note: Urine culture result faxed to [facility] Medical ICU for follow up. Pt transferred there 12/10/20. Mell Barker [phone]
== END 2020-12-10 15:39 ==
LOC: ER 14:27
PROVIDERS: Physician Assistant; Emergency Provider Physician Assistant
DX: I46.8 Cardiac arrest due to other underlying condition (principal); R00.1 Bradycardia, unspecified; R55 Syncope and collapse; R11.2 Nausea with vomiting, unspecified
CPT/HCPCS: 36415; 36416; 80053; 82805; 82962; 87077; 92950; 92953; 93005; 96374; 96375; 99291; 71045; 81003; 81015; 83735; 84484; 85025; 85610; 85730; 87086; 87186; 93010; J2405; J3010

== ENCOUNTER 2021-10-19 10:55 | Outpatient (REF) | payer MEDICARE, BC, SELFPAY | END 2021-10-19 10:56 | disposition home or self-care (01) | LOC: LBN 10:55 | PROVIDERS: PCP Family Medicine; Visit Provider Family Medicine | DX: M54.9 Dorsalgia, unspecified (principal); R41.9 Unspecified symptoms and signs involving cognitive functions and awareness; R82.998 Other abnormal findings in urine | CPT/HCPCS: 87077; 87086; 87186 ==

== ENCOUNTER 2021-10-26 02:41 | Outpatient (CLI) | payer MEDICARE, BC, SELFPAY ==
[2021-10-26 13:45] LABS: Abs Immature Grans 0.01 10^3/uL (0.0-0.06); Absolute Basophil Count 0.05 10^3/uL (0.0-0.2); Absolute Eosinophil Count 0.12 10^3/uL (0.0-0.7); Absolute Lymphocyte Count 2.05 10^3/uL (1.2-3.4); Absolute Monocyte Count 0.56 10^3/uL (0.1-0.8); Absolute Neutrophil Count 2.19 10^3/uL (1.2-6.7); Eosinophils % 2.4; HCT 43.9 % (36.0-46.0); HGB 14.7 g/dL (11.2-15.7); Immature Grans % 0.2; Lymphocytes % 41.2; MCH 30.2 pg (27.0-33.0); MCHC 33.5 % (32.0-36.0); MCV 90.3 fL (80-95); MPV 9.8 fL (8.0-11.0); Monocytes % 11.2; Platelet Count 216 10^3/uL (130-400); RBC 4.86 10^6/uL (3.93-5.22); RDW 12.6 % (11.7-14.6); RDW-SD 41.3 fL; WBC 4.98 10^3/uL (4.4-10.8)
[2021-10-26 14:45] LABS: Folate 8.7 ng/mL (8.6-20.0)
[2021-10-26 14:58] LABS: TSH (W/Ref FT4) 1.53 uIU/mL (0.36-3.74); Vitamin B12 647 pg/mL (193-986)
[2021-10-26 15:12] LABS: C-Reactive Protein 0.12 mg/dL (0.0-0.3)
[2021-10-27 11:27] LABS: HIV-1/2 Ag & Ab Screen Negative (Negative)
[2021-10-27 13:18] LABS: Syphilis Serology (RPR) Negative (Negative)
== END 2021-10-26 02:42 | disposition home or self-care (01) ==
LOC: LBO 02:41
PROVIDERS: PCP Family Medicine; Visit Provider Family Medicine
DX: R41.3 Other amnesia (principal); R55 Syncope and collapse; M54.89 Other dorsalgia
CPT/HCPCS: 36415; 87389; 82607; 82746; 84443; 85025; 86140; 86592

== ENCOUNTER 2022-07-17 16:05 | Outpatient (CLI) | payer MEDICARE, BC, SELFPAY ==
--- NOTE | 2022-07-17 15:00 | DI.RAD_ITS ---
Exam(s) XR HIP RT COMPLETE AP PELVIS EXAM: XR HIP RT COMPLETE AP PELVIS CLINICAL HISTORY: continued pain after fall 1.5 weeks ago M25.551 PAIN RT HIP W19.XXXA FALL. TECHNIQUE: 2D digital imaging was performed of the right hip. Two images were obtained. AP pelvis a nd lateral right hip views were obtained. COMPARISON: CR XR hip pelvis adult Bl from 06/18/2018 FINDINGS: BONES: No acute or healed fracture is present. No bony destructive lesion is seen. JOINTS: No dislocation present. There are degenerative changes seen in the right hip. SOFT TISSUE: Normal. IMPRESSION: No evidence of an acute or healing fracture. DATA REPOSITORY: RADIATION DOSE DELIVERED:
== END 2022-07-17 16:25 ==
LOC: DI 16:07
PROVIDERS: PCP Family Medicine; Visit Provider Nurse Practitioner
DX: M25.551 Pain in right hip (principal); W19.XXXA Unspecified fall, initial encounter
CPT/HCPCS: 73502

== ENCOUNTER 2022-10-05 12:35 | Outpatient (CLI) | payer MEDICARE, BC, SELFPAY ==
--- NOTE | 2022-10-05 12:00 | DI.RAD_ITS ---
Exam(s) XR CHEST 2V PA LATERAL EXAM: XR CHEST 2V PA LATERAL CLINICAL HISTORY: chest wall pain, check pacemake placement, Z95.0, R07.89 TECHNIQUE: 2D digital imaging was performed. COMPARISON: CR XR PORTABLE CHEST AP from 12/10/2020 FINDINGS: HEART: Normal size. Pacemaker now in place over left chest wall. Single lead with tip projecting in right ventricle. Aorta: Not dilated. Calcification at arch. PULMONARY VASCULATURE: Normal. LUNGS: Clear. PLEURAL SPACE: No pleural effusion or pneumothorax. BONE:Unremarkable for age. IMPRESSION: No acute abnormality. Pacemaker with lead in satisfactory position. DATA REPOSITORY: RADIATION DOSE DELIVERED:
== END 2022-10-05 12:55 ==
PROVIDERS: PCP Family Medicine; Visit Provider Nurse Practitioner Family
DX: R07.89 Other chest pain (principal); Z95.0 Presence of cardiac pacemaker
CPT/HCPCS: 71046

== ENCOUNTER 2022-12-23 10:08 | Emergency (ER) | payer MEDICARE, BC, SELFPAY ==
[2022-12-23] VITALS (30 sets, daily range): BP systolic 122–157; BP diastolic 55–85; PULSE 40–80; RESP 11–22; TEMP 37.3; O2SAT 94–99
--- NOTE | 2022-12-23 10:00 | RT.EKG_ITS ---
APPROVED REPORT Exam: Resting ECG Reason for Exam: syncope, fall Patient Location: E HR:61 bpm ECG Measurements Heart Rate 61 AXIS AK 197 P 43 QRSd 88 QRS -36 QT 410 T -5 QTc 415 Conclusion Sinus rhythm...normal P axis, V-rate 60- 99 Left axis deviation...QRS axis (-30,-90) Narrow complex normal sinus rhythm at a rate of 61. Left axis deviation no signs of LVH based on vol tage criteria. Intervals within normal limits. Compared to prior dated 2 years ago first-degree AV block has resolved. Diffuse T wave flattening. No ST segment abnormalities. No acute injury martín tran
--- NOTE | 2022-12-23 10:15 | DI.CT_ITS ---
Exam(s) CT HEAD CERVICAL SPINE WO EXAM: CT HEAD CERVICAL SPINE WO CLINICAL HISTORY: syncope. TECHNIQUE: Imaging Protocol: Axial computed tomography images with coronal and sagittal reformatted images were created and reviewed COMPARISON: CT CT HEAD FACIAL WO from 03/28/2018 FINDINGS: BRAIN: There is a large posterior left parietal region scalp hematoma. No subjacent skull fractures nor flu id in the paranasal sinuses and mastoid air cells. No evidence of basal skull fracture. There is very subtle suggestion of either gyral petechial or subarachnoid hemorrhage over the right f rontal lobe. This is extremely subtle. No blood within the ventricular system nor within the basal cisterns. CERVICAL SPINE: There is no evidence of fracture nor listhesis. No significant prevertebral soft tissue swelling. There is no significant facet joint malalignment. No significant osseous lesions evident. IMPRESSION: Large posterior left scalp hematoma. Very subtle suggestion of what is either petechial gyral hemorr rob or subtle subarachnoid blood over the right frontal region. Recommend repeat scan in 24 hours a nd/or MRI. No evidence of cervical spine fracture, malalignment, nor acute compromise of the cervical spinal can al. First read by [facility] RADIATION DOSE DELIVERED: 1,387.71mGy.cm Total DLP DATA REPOSITORY: All CT scans at this facility are submitted to the National Radiology Data Registry (NRDR) Dose Index Registry (DIR) with the [employer] (A[employer]). RADIATION OPTIMIZATION: All CT scans at this facility use at least one of these dose optimization te chniques: automated exposure control; mA and/or kV adjustment per patient size (includes targeted exa ms where dose is matched to clinical indication); or iterative reconstruction.
--- NOTE | 2022-12-23 10:28 | ED.GENADUL_ITS ---
Discharge Plan Disposition Patient Disposition: Transfer-Acute Inpatient Care Specific Acute Inpt Facility: [facility] Discharge Details Clinical Impression: Traumatic subarachnoid hemorrhage, Hematoma of scalp, Symptomatic bradycardia Primary Care Provider: Rudi Ramirez ED Provider: Berlin Schneider Home Meds and New Rx's Prescriptions: No Action (DME) Blood Glucose Test Strip 1 ea Miscellaneous DAILY Qty: 100 12RF Rx Instructions: FOR available METER. PT DOES NOT USE INSULIN. DIAGNOSIS CODE E11.9 (DME) lancets 28 gauge misc 1 ea Miscellaneous TID & PRN Qty: 100 12RF Rx Instructions: FOR __available METER. DIAGNOSIS CODE E11.9 nystatin 100,000 unit/gram cream 1 applic topical QID Qty: 30 3RF Patient Comments: not using ondansetron HCl [Zofran] 4 mg tablet 4 mg PO Q6H PRN (Reason: nausea and vomiting) Qty: 30 0RF Patient Comments: rarely uses Blister harris PO Rx Instructions: all med changes report to [facility] amitriptyline 25 mg tablet 25 mg PO QHS Qty: 30 11RF Hold Instructions: Home Medication placed on hold at Doctor's office atorvastatin 10 mg tablet 10 mg PO QAM Qty: 30 11RF oxybutynin chloride 5 mg tablet 5 mg PO QAM AND QHS Qty: 60 11RF losartan-hydrochlorothiazide 100-25 mg tablet 1 tab PO QAM Qty: 30 11RF ibuprofen 600 mg tablet 600 mg PO TID PRN (Reason: pain) Qty: 90 0RF acetaminophen [Tylenol] 325 mg capsule 650 mg PO Q6H PRN (Reason: pain) Qty: 90 0RF gabapentin 100 mg capsule 200 mg PO HS Patient Comments: not taking Discharge Data Discharge Date/Time-TO BE ENTERED AT DEPARTURE: 12/23/22 13:46 Medical Decision Making Patient presenting to the emergency department for chief complaint of syncopal episode with head injury. Patient states she remembers going from the bedroom to the kitchen but then had a syncopal episode that she does not remember occurring. Patient states only complaint is the large hematoma and swelling to the back of her head. Patient denies any focal neurological findings, denies any chest abdomen or extremity pain, denies nausea or vomiting, denies all other symptoms. Patient has significant past medical history of vascular dementia, intracranial aneurysm, cardiac rhythm abnormality which caused asystole and syncope, hypertension, anxiety. Physical exam shows significant occipital hematoma with surrounding tenderness otherwise cranial nerve exam is unremarkable, patient is alert and oriented x3 and extremity cardiac and remainder exam is unremarkable. We will plan on performing CT imaging due to syncopal episode with significant hematoma and history of aneurysm. While patient has no C-spine tenderness will include C-spine given patient's age. Will check EKG and labs given that patient does not remember if this was a simple mechanical fall or other event given loss of consciousness. Pending results will give IV acetaminophen. Reviewed patient's labs and CBC shows slightly low WBC at 4.26, elevated hemoglobin and hematocrit continues slightly with hemoglobin of 16. Platelets are within normal range. CMP shows slightly elevated BUN at 19, glucose 154, calcium slightly elevated at 10.5 with magnesium 1.7, AST low at 14 and alk phos low at 39. Troponin negative nondetected although the labs are within normal range. Preliminary report reviewed from pacemaker interrogation that does show parameter of lower rate of 40 bpm, there has been one or more monitored V. tach episodes detected. Question if this is what caused patient's symptoms but will continue to monitor on cardiac monitoring. Reviewed CT imaging and radiologist interpretation that does show a small subarachnoid bleed and a countercoup manner to patient's scalp hematoma. Immediately initiated consult to discuss case with [facility]. Patient's blood pressure vital signs and mental status are stable but will continue to monitor. Pending speaking with [facility] patient did have episode of bradycardia with heart rate in the 40s where she became symptomatic and stated not feeling well. I question if this could be why she had syncopal event and if parameter of 40 for the pacemaker may be too low. Spoke with Dr. Heath with trauma service who agreed to have patient accepted in transfer. Did recommend 1 g of Keppra which we will initiate and initiate transfer via end stapler. informed patient of findings along with daughter. Pending transfer I did speak with [employer] who was able to verify that patient did not have any events this morning that were recorded on the monitor. There h as been some V. tach events but the last event that that occurred was October 13, 2022. I still question with patient becoming symptomatic care when her heart rate is in the 40s if pacers low rate of 40 is too low which may have led to event. Patient did become slightly nauseous after starting Keppra and 4 mg ODT Zofran was given. Medical Records Medical records reviewed: Yes I reviewed the patient's medical records. Medical records narrative: Reviewed previous emergency department visit for syncope and bradycardia Imaging Data Radiologic Study: Imaging: CT Scan Radiologist's impression: Exam(s) PROCEDURE INFORMATION: Exam: CT Head Without Contrast Exam date and time: 12/23/2022 10:58 AM Age: 72 years old Clinical indication: Other: Syncope TECHNIQUE: Imaging protocol: Computed tomography of the head without contrast. Radiation optimization: All CT scans at this facility use at least one of these dose optimization techniques: automated exposure control; mA and/or kV adjustment per patient size (includes targeted exams where dose is matched to clinical indication); or iterative reconstruction. Other technique: Axial images are available with sagittal and coronal reconstruction views. Automated dose exposure control is utilized. The DLP is 1388. COMPARISON: 1. CT HEAD FACIAL WO 03/28/2018 8:[address] HEAD WITHOUT CONTRAST 08/02/2016 2:15 PM FINDINGS: Brain: There are moderate cerebral atrophic changes overall.There are chronic periventricular white matter changes present.There are central lacunar changes demonstrated. No interval parenchymal level mass-effect or midline shift changes are currently appreciated. There is some increased density of the sulcal margins for example most pronounced of the right frontoparietal junction as well as questionable left superiorly parietal level suggestive of some subarachnoid blood. Cerebral ventricles: No hydrocephalus is appreciated. Paranasal sinuses: The paranasal sinuses appear well-aerated overall. Mastoid air cells: The mastoid air cells appear well-aerated overall. Orbital cavities: Symmetric appearance of the orbital soft tissues is demonstrated. There is some subtle asymmetry of the lens and globe margins although could also be seen with motion or previous intervention. Bones/joints: Osseous alignment is maintained.No interval displaced fracture or dislocation is appreciated.There is hyperostosis frontalis demonstrated. Soft tissues: There is soft tissue swelling and contusion appearance of the posterior left superior scalp. Vasculature: There is questionable of some subtle vascular dilatation for example of the right temporal MCA margin measuring approximately 5 x 6 mm. Some ectasia or marginal aneurysmal dilatation could also present in this fashion. Other findings: There is some motion artifact present. No other significant interval changes are appreciated. IMPRESSION: 1. There is left posterior scalp swelling and contusion appearance with some subarachnoid blood demonstrated anteriorly on the right of the frontoparietal margin as well as questionable at the left parietal superior margin. 2. There is some prominence density of the right temporal MCA margin and could represent some ectasia or subtle aneurysmal dilatation. Consider CTA. THIS REPORT CONTAINS FINDINGS THAT MAY BE CRITICAL TO PATIENT CARE. The findings were verbally communicated via telephone conference at 12:05 PM EDT on 12/23/2022 with BERLIN SCHNEIDER. Lab Data Lab results reviewed: Yes I reviewed the patient's lab results. HPI General Mode of arrival: EMS . Date/Time Provider Initiated Documentation: 12/23/22 10:28 . Limitations to Documentation: no limitations . Information obtained by: patient, family, RN notes reviewed and old records reviewed . History of Present Illness 72 year old F presents to the emergency department with the chief complaint of Syncope with head injury, described as moderate, Quality is described as sharp, and is localized to the head. Patient started experiencing this hour(s) (1) and it has been constant. No relieving factors improve symptom(s), No exacerbating factors reported . Patient notes no other symptoms.. Patient did receive the following treatments prior to arrival, none Related Data Home Medications Medication Instructions Recorded Confirmed acetaminophen 325 mg capsule 650 mg PO Q6H PRN pain #90 caps 09/23/18 12/23/22 (Tylenol) ibuprofen 600 mg tablet 600 mg PO TID PRN pain #90 tabs 09/23/18 12/23/22 blood sugar diagnostic (Blood #100 strips 09/01/19 10/05/22 Glucose Test strips) lancets 28 gauge #100 ea 09/01/19 10/05/22 ondansetron HCl 4 mg tablet 4 mg PO Q6H PRN nausea and 03/16/21 12/23/22 (Zofran) vomiting #30 tabs Blister harris PO 07/28/21 10/05/22 amitriptyline 25 mg tablet 25 mg PO QHS #30 tabs 06/29/22 12/23/22 atorvastatin 10 mg tablet 10 mg PO QAM #30 tabs 06/29/22 12/23/22 oxybutynin chloride 5 mg tablet 5 mg PO QAM AND QHS #60 tab-caps 06/29/22 12/23/22 losartan 100 1 tab PO QAM #30 tabs 07/05/22 12/23/22 mg-hydrochlorothiazide 25 mg tablet nystatin 100,000 unit/gram topical 1 applic topical QID #30 grams 07/17/22 10/05/22 cream gabapentin 100 mg capsule 200 mg PO HS 12/23/22 12/23/22 Previous Rx's Medication Instructions Recorded acetaminophen 325 mg capsule 650 mg PO Q6H PRN pain #90 caps 09/23/18 (Tylenol) ibuprofen 600 mg tablet 600 mg PO TID PRN pain #90 tabs 09/23/18 blood sugar diagnostic (Blood #100 strips 09/01/19 Glucose Test strips) lancets 28 gauge #100 ea 09/01/19 ondansetron HCl 4 mg tablet 4 mg PO Q6H PRN nausea and 03/16/21 (Zofran) vomiting #30 tabs amitriptyline 25 mg tablet 25 mg PO QHS #30 tabs 06/29/22 atorvastatin 10 mg tablet 10 mg PO QAM #30 tabs 06/29/22 oxybutynin chloride 5 mg tablet 5 mg PO QAM AND QHS #60 tab-caps 06/29/22 losartan 100 1 tab PO QAM #30 tabs 07/05/22 mg-hydrochlorothiazide 25 mg tablet nystatin 100,000 unit/gram topical 1 applic topical QID #30 grams 07/17/22 cream Allergies Allergy/AdvReac Type Severity Reaction Status Date / Time Penicillins Allergy Verified 12/23/22 10:28 General Stated Complaint: Fall/Non TraumaCriteria MELISSA: 2 Review of Systems Constitutional Constitutional: Denies fatigue, Denies fever(s), Reports headache(s) and Denies malaise Eyes Eyes: Denies change in vision ENT Ears, Nose, Mouth, and Throat: Denies dizziness, Denies facial pain, Reports headache(s), Denies epistaxis and Denies neck pain Cardiovascular Cardiovascular: Denies chest pain, Reports syncope, Denies rapid heart rate, Denies lightheadedness and Denies dyspnea Respiratory Respiratory: Denies dyspnea Gastrointestinal Gastrointestinal: Denies abdominal pain, Denies nausea and Denies vomiting Musculoskeletal Musculoskeletal: Denies back pain, Denies myalgias and Denies neck pain Integumentary/Breasts Skin/Breast: Denies wounds Neurologic Neurologic: Reports as per HPI, Denies dizziness, Reports syncope, Reports headache(s), Denies localized weakness, Reports memory loss, Denies convulsions and Denies paresthesias Psychiatric Psychiatric: Reports memory loss Endocrine Endocrine: Denies fatigue PFSH All Active Problems (Updated 12/23/22 @ 13:10 by Berlin Schneider NP) Traumatic subarachnoid hemorrhage (Acute) Hematoma of scalp (Acute) Symptomatic bradycardia (Acute) Presence of cardiac pacemaker (Chronic) Advanced care planning/counseling discussion (Acute) Mixed Alzheimer's and vascular dementia (Acute) Agitation due to dementia (Acute) Dementia (Chronic) Declining functional status (Acute) Syncope (Chronic) Asystole by electrocardiogram (Acute) Fibromyalgia (Acute) Medication care plan discussed with patient (Acute) Hyperplastic colon polyp (Acute) Controlled diabetes mellitus (Chronic) Arthralgia (Chronic) shoulders and hips Increased frequency of urination (Acute 04/19/15) Vitamin D deficiency (Chronic) Humeral head fracture (Acute) DOI: 09/23/18 Trochanteric bursitis, right hip (Chronic) Injected 09/11/2018 Anxiety (Chronic) Urinary incontinence in female (Chronic) Osteoarthritis (Chronic) Obesity (Chronic 04/19/15) Memory disturbance (Chronic 07/04/16) Medial joint line tenderness of left knee (Chronic 10/17/15) Left hip pain (Chronic) Insomnia (Chronic 04/19/15) Hyperlipidemia (Chronic 04/20/14) History of elevated glucose (Chronic 12/25/17) Fibromyalgia (Chronic 04/19/15) Fatigue due to depression (Chronic 08/31/13) Essential hypertension (Chronic 11/22/15) Depressed mood (Chronic 03/09/16) Controlled type 2 diabetes mellitus (Chronic 10/17/15) Back pain (Chronic) Attention deficit (Chronic 04/06/16) Anxiety and depression (Chronic 10/08/16) Acute intractable tension-type headache (Chronic 02/19/18) Medical History Calculus of kidney (03/17/12) Concussion (08/10/16) Cough (07/04/16) Depression Palliative care patient Urinary tract infection Surgical History section 04/06/87;10/06/80 Cystectomy, Mini Lap Ovarian (~05/1967) Elbow surgery (~1991) left excision bone Hernia repair x 2 Ureteroscopy 10/2011-STENT PLACEMENT-RIGHT URETER Family History Mother Cancer Uterine Dementia Father Heart disease Neoplasm TESTICULAR Sister Neoplasm COLON Brother Neoplasm COLON Social History Smoking/Tobacco Use Status: Former Tobacco Use Second Hand Exposure: No Smoking risk assessment performed?: Yes Alcohol Intake: never Drug use: Never Substance use type: does not use Counseling given: No Counseling provided: none Adopted: No Caregiver/Support person: No Foster care: No Household members: spouse Housing: house Number of Children: 2 number of grandchildren: 4 Communication Needs: Corrective Lenses Education Level: college Details: Associate's Degree Do you need help understanding health information?: Always current occupation: Retired - office work, in business Pets and animals: Yes (2) Pets and animals: dog(s) Sexually active: No Do you think of yourself as: straight/heterosexual Current gender identity: female What is your relationship status?: How often do you talk on the phone with friends or family?: three or more times per week How often do you get together with friends or relatives?: three or more times per week How often do you attend taoism or anabaptism services?: decline to answer Do you belong to any clubs or organized social groups?: no Panel score (0-1 are the most socially isolated patients): 2 What type of physical activity do you participate in: walking Duration: 15-30 minutes/day Frequency: daily Vandana/Lutheran: [facility] Special vandana needs: No Seatbelt use: always Helmet use: No Drive intox or ride w/intox sales driver: No Do you feel safe at home: Yes Do you feel safe in your relationship?: Yes Exam Const General: cooperative, healthy appearing, no acute distress and well groomed Orientation: alert, awake and oriented x3 HENMT Head: no El's sign, hematoma left occipital, no lacerations, no raccoon eyes and No periorbital ecchymosis Ears: hearing grossly normal bilaterally and TM's normal bilaterally Mouth: oral mucosae normal and moist mucous membranes Throat: posterior oropharynx normal Eyes Visual Amezcua: normal visual amezcua by confrontation Alignment and Position: alignment normal Periorbital: periorbital findings normal Eyelids: eyelids normal Sclera: sclerae normal Pupils: PERRL EOM: EOM intact bilaterally Neck Neck: normal visual inspection, full ROM, no meningeal signs, nontender and no torticollis Chest Chest: normal inspection of the chest and normal palpation of entire chest wall Resp Effort & Inspection: normal respiratory effort and able to speak in complete sentences Auscultation: clear to auscultation bilaterally Cardio Rate: regular rate Rhythm: regular rhythm Heart Sounds: S1 normal and S2 normal Back/Spine/Pelvis Cervical Spine: normal cervical lordosis, No pain with cervical ROM and No cervical spinal tenderness Thoracic/Lumbar Spine: No thoracic spinal tenderness Neuro General: patient alert, patient awake, patient oriented x3, tone normal, moves all extremities and CN's II-XI intact bilaterally Cognition: normal cognition Speech: speech normal Motor: muscle tone normal throughout, strength 5/5 throughout, no pronator dr ift, no movement abnormalities noted and no fasciculations Sensory Exam: no sensory deficits noted Coordination: Does not sway with eyes open Course Vital Signs Vital signs: Vital Signs Pulse 70 12/23/22 10:08 Respiratory Rate 16 12/23/22 10:08 Blood Pressure 137/67 12/23/22 10:08 Pulse Oximetry 98 12/23/22 10:08 Temperature Source Skin 12/23/22 10:08 Pulse 70 12/23/22 10:08 Respiratory Rate 16 12/23/22 10:08 Respiratory Effort Normal 12/23/22 10:27 Respiratory Depth Normal 12/23/22 10:24 Respiratory Pattern Normal 12/23/22 10:24 Blood Pressure 137/67 12/23/22 10:08 Blood Pressure Position Supine 12/23/22 10:08 Pulse Oximetry 98 12/23/22 10:08 Oxygen Delivery Method Room Air 12/23/22 10:08 Oxygen Flow Rate 0 12/23/22 10:08 Pain Level 6 12/23/22 10:08 Critical Care Time Critical Care Time Critical Care Time: Yes Total Critical Care Time: 45 Attestation: Due to traumatic subarachnoid hemorrhage with high probability of imminent or life threatening deterioration in the patient?s condition without intervention and treatment. Time spent documenting, reviewing labs and radiographs, monitoring titration/ Vital signs, and speaking with trauma services at [facility], and [employer] client services representative for pacemaker interrogation
[2022-12-23 10:53] LABS: Abs Immature Grans 0.01 10^3/uL (0.0-0.06); Absolute Basophil Count 0.04 10^3/uL (0.0-0.2); Absolute Lymphocyte Count 0.58 10^3/uL (1.2-3.4); Absolute Monocyte Count 0.28 10^3/uL (0.1-0.8); Absolute Neutrophil Count 3.35 10^3/uL (1.2-6.7); Basophils % 0.9; HCT 46.7 % (36.0-46.0); Immature Grans % 0.2; Lymphocytes % 13.6; MCH 30.8 pg (27.0-33.0); MCHC 34.3 % (32.0-36.0); MCV 90 fL (80-95); MPV 9.8 fL (8.0-11.0); Monocytes % 6.6; Neutrophils % 78.7; Platelet Count 184 10^3/uL (130-400); RBC 5.19 10^6/uL (3.93-5.22); RDW 11.9 % (11.7-14.6); RDW-SD 39.7 fL; WBC 4.26 10^3/uL (4.4-10.8)
[2022-12-23 11:15] LABS: ALT 17 U/L (14-59); AST 14 U/L (15-37); Albumin 4.2 g/dL (3.4-5.0); Alkaline Phosphatase 39 U/L (46-116); Anion Gap 10.1 mmol/L (3-11); BUN 19 mg/dL (7-18); Bilirubin, Total 0.6 mg/dL (0.2-1.0); CO2 29.9 mmol/L (21.0-32.0); Calcium 10.5 mg/dL (8.5-10.1); Chloride 99 mmol/L (98-107); Estimated GFR 59.49 (mL/min/1.73m2); Glucose 154 mg/dL (74-106); Magnesium 1.7 mg/dL (1.8-2.4); Potassium 3.5 mmol/L (3.5-5.1); Sodium 139 mmol/L (136-145); Total Protein 8.1 g/dL (6.4-8.2); Troponin I < 50 ng/L (<or=60)
--- NOTE | 2022-12-23 11:45 | RT.EKG_ITS ---
APPROVED REPORT Exam: Resting ECG Reason for Exam: sob Patient Location: E HR:50 bpm ECG Measurements Heart Rate 50 AXIS IN 198 P 25 QRSd 88 QRS -32 QT 430 T -9 QTc 394 Conclusion Sinus bradycardia...rate< 60 Inferior infarct, old...Q >35mS, II III aVF Narrow complex sinus bradycardia at a rate of 50. No ST segment abnormalities. Diffuse T wave bruce ening. Appears similar to prior dated earlier today with sinus bradycardia replacement sinus rhythm.
--- NOTE | 2022-12-23 12:08 | DI.VRAD_ITS ---
PROCEDURE INFORMATION: Exam: CT Head Without Contrast Exam date and time: 12/23/2022 10:58 AM Age: 72 years old Clinical indication: Other: Syncope TECHNIQUE: Imaging protocol: Computed tomography of the head without contrast. Radiation optimization: All CT scans at this facility use at least one of these dose optimization techniques: automated exposure control; mA and/or kV adjustment per patient size (includes targeted exams where dose is matched to clinical indication); or iterative reconstruction. Other technique: Axial images are available with sagittal and coronal reconstruction views. Automated dose exposure control is utilized. The DLP is [id number]. COMPARISON: 1. CT HEAD FACIAL WO 03/28/2018 8:[address] HEAD WITHOUT CONTRAST 08/02/2016 2:15 PM FINDINGS: Brain: There are moderate cerebral atrophic changes overall.There are chronic periventricular white matter changes present.There are central lacunar changes demonstrated. No interval parenchymal level mass-effect or midline shift changes are currently appreciated. There is some increased density of the sulcal margins for example most pronounced of the right frontoparietal junction as well as questionable left superiorly parietal level suggestive of some subarachnoid blood. Cerebral ventricles: No hydrocephalus is appreciated. Paranasal sinuses: The paranasal sinuses appear well-aerated overall. Mastoid air cells: The mastoid air cells appear well-aerated overall. Orbital cavities: Symmetric appearance of the orbital soft tissues is demonstrated. There is some subtle asymmetry of the lens and globe margins although could also be seen with motion or previous intervention. Bones/joints: Osseous alignment is maintained.No interval displaced fracture or dislocation is appreciated.There is hyperostosis frontalis demonstrated. Soft tissues: There is soft tissue swelling and contusion appearance of the posterior left superior scalp. Vasculature: There is questionable of some subtle vascular dilatation for example of the right temporal MCA margin measuring approximately 5 x 6 mm. Some ectasia or marginal aneurysmal dilatation could also present in this fashion. Other findings: There is some motion artifact present. No other significant interval changes are appreciated. IMPRESSION: 1. There is left posterior scalp swelling and contusion appearance with some subarachnoid blood demonstrated anteriorly on the right of the frontoparietal margin as well as questionable at the left parietal superior margin. 2. There is some prominence density of the right temporal MCA margin and could represent some ectasia or subtle aneurysmal dilatation. Consider CTA. THIS REPORT CONTAINS FINDINGS THAT MAY BE CRITICAL TO PATIENT CARE. The findings were verbally communicated via telephone conference at 12:05 PM EDT on 12/23/2022 with XOCHITL NARVAEZ. The findings were acknowledged and understood. PROCEDURE INFORMATION: Exam: CT Cervical Spine Without Contrast Exam date and time: 12/23/2022 10:58 AM Age: 72 years old Clinical indication: Other: Syncope TECHNIQUE: Imaging protocol: Computed tomography of the cervical spine without contrast. [id number](s) are provided. Radiation optimization: All CT scans at this facility use at least one of these dose optimization techniques: automated exposure control; mA and/or kV adjustment per patient size (includes targeted exams where dose is matched to clinical indication); or iterative reconstruction. COMPARISON: CT CHEST PE ABD PELVIS W 10/15/2019 4:20 PM. No previous cervical spine plain film or CT is currently available. FINDINGS: Tubes, catheters and devices: Cardiac lead hardware is present. Bones/joints: Osseous alignment is maintained.No interval displaced fracture or dislocation is appreciated.There is slightly decreased bone mineralization overall. There are chronic degenerative changes of the mandibular condyles. There is facet, uncovertebral hypertrophy demonstrated. There are chronic degenerative changes of the clavicular manubrial junctions. There is a chronic appearing deformity of the right humeral head on the farm equipment mechanic radiograph. There is some chronic endplate degeneration of the upper thoracic levels albeit similar overall. No subcutaneous fluid collections of the cervical spine level are currently appreciated. Discs/Spinal canal/Neural foramina: No hyperdense spinal canal fluid is appreciated. Lungs: No lung apical pneumothorax or lobar consolidation is appreciated. Lymph nodes: There are subcentimeter short axis cervical lymph nodes overall similar. Vasculature: There are atherosclerotic vascular calcifications present. Soft tissues: No radiopaque foreign body or subcutaneous emphysema is appreciated. No abnormal prevertebral soft tissue thickening is appreciated. Other findings: There is some motion artifact present. No other significant interval changes are appreciated. IMPRESSION: Osseous alignment is maintained.No fracture or dislocation is appreciated. Dictated and Authenticated by: Jerry Rodriugez MD. Ordering:KATY Slade MD
--- NOTE | 2022-12-23 12:16 | NUR.NOTE ---
HR noted to be in the 40's repeat EKG showed 50 bpm provider notified defib pads placed on pt awaiting callback from [facility] [place] Nursing Note:
[2022-12-23] MEDS: levETIRAcetam 1,000 MG in Normal Saline 100 ML 400 MG IVPB (12:49)
[2022-12-23] MEDS: Ondansetron O.D.T. 4 MG TABEF PO (13:09)
== END 2022-12-23 13:46 | disposition short-term general hospital (02) ==
PROVIDERS: Emergency Provider Nurse Practitioner Family; PCP Family Medicine
DX: S06.6XAA Traumatic subarachnoid hemorrhage with loss of consciousness status unknown, initial encounter (principal); S00.03XA Contusion of scalp, initial encounter; R00.1 Bradycardia, unspecified; Z95.0 Presence of cardiac pacemaker
CPT/HCPCS: 36415; 80053; 93005; 96365; 96375; 99291; 70450; 72125; 83735; 84484; 85025; 93010; J0131; J1953

== ENCOUNTER 2024-05-24 10:21 | Emergency (ER) | payer MEDICARE, BC, SELFPAY ==
[2024-05-24] VITALS (26 sets, daily range): BP systolic 131–189; BP diastolic 51–83; PULSE 64–81; RESP 8–23; TEMP 36.8–37; O2SAT 95–100
--- NOTE | 2024-05-24 10:15 | RT.EKG_ITS ---
APPROVED REPORT Exam: Resting ECG Reason for Exam: Palpations Patient Location: E HR:73 bpm ECG Measurements Heart Rate 73 AXIS SC 191 P -11 QRSd 75 QRS -48 QT 377 T -10 QTc 416 Conclusion Sinus rhythm...normal P axis, V-rate 60- 99 Left ventricular hypertrophy...multiple voltage criteria Inferior infarct, old...Q >35mS, II III aVF
--- NOTE | 2024-05-24 11:00 | DI.RAD_ITS ---
Exam(s) XR CHEST 2V PA LATERAL EXAM: XR CHEST 2V PA LATERAL CLINICAL HISTORY: chest pain TECHNIQUE: 2D digital imaging was performed. Two views. COMPARISON: CR XR CHEST 2V PA LATERAL from 10/05/2022 FINDINGS: HEART: Normal size. See pacemaker Aorta: Not dilated. Tortuous PULMONARY VASCULATURE: Normal. MEDIASTINUM: Unremarkable. LUNGS: Clear. PLEURAL SPACE: No pleural effusion or pneumothorax. BONE:Unremarkable for age. SOFT TISSUES: Stable elevation of the right hemidiaphragm. IMPRESSION: No acute abnormality. DATA REPOSITORY: RADIATION DOSE DELIVERED:
[2024-05-24 11:20] LABS: Abs Immature Grans 0.02 10^3/uL (0.0-0.06); Absolute Basophil Count 0.05 10^3/uL (0.0-0.2); Absolute Eosinophil Count 0.06 10^3/uL (0.0-0.7); Absolute Lymphocyte Count 1.24 10^3/uL (1.2-3.4); Absolute Monocyte Count 0.49 10^3/uL (0.1-0.8); Absolute Neutrophil Count 3.72 10^3/uL (1.2-6.7); Basophils % 0.9 %; Eosinophils % 1.1 %; HCT 43.8 % (36.0-46.0); HGB 14.6 g/dL (11.2-15.7); Immature Grans % 0.4 %; Lymphocytes % 22.2 %; MCH 29.9 pg (27.0-33.0); MCHC 33.3 % (32.0-36.0); MCV 90 fL (80-95); MPV 9.6 fL (8.0-11.0); Monocytes % 8.8 %; Neutrophils % 66.6 %; Platelet Count 204 10^3/uL (130-400); RBC 4.89 10^6/uL (3.93-5.22); RDW 13.1 % (11.7-14.6); RDW-SD 42.6 fL; WBC 5.58 10^3/uL (4.4-10.8)
[2024-05-24 11:40] LABS: ALT 13 U/L (14-59); AST 8 U/L (15-37); Albumin 3.2 g/dL (3.4-5.0); Alkaline Phosphatase 61 U/L (46-116); BUN 17 mg/dL (7-18); Calcium 9.6 mg/dL (8.5-10.1); Chloride 106 mmol/L (98-107); Estimated GFR 59.12 (mL/min/1.73m2); Glucose 150 mg/dL (74-106); Lipase 61 U/L (16-77); Magnesium 2.1 mg/dL (1.8-2.4); Sodium 142 mmol/L (136-145); Total Protein 6.5 g/dL (6.4-8.2); Troponin I 6 ng/L (<or=51)
--- NOTE | 2024-05-24 11:58 | DI.VRAD_ITS ---
PROCEDURE INFORMATION: Exam: XR Chest Exam date and time: 05/24/2024 11:23 AM Age: 73 years old Clinical indication: Other: Chest pain TECHNIQUE: Imaging protocol: Radiologic exam of the chest. Views: 2 views. COMPARISON: CR XR CHEST 2V PA LATERAL 10/05/2022 12:17 PM FINDINGS: Tubes, catheters and devices: A left-sided pacemaker is again present. Lungs: Unremarkable. No consolidation. Pleural spaces: Unremarkable. No pleural effusion. No pneumothorax. Heart/Mediastinum: The cardiomediastinal silhouette is fairly stable in appearance. Diaphragm: The right hemidiaphragm is again elevated. Bones/joints: Degenerative changes again involve the spine and shoulders. IMPRESSION: No evidence for acute pulmonary disease. Dictated and Authenticated by: Armen Martinez MD. Ordering:HEIDI Ohara MD
[2024-05-24 12:44] LABS: Troponin I 8 ng/L (<or=51)
--- NOTE | 2024-05-24 14:36 | ED.GENADUL_ITS ---
Discharge Plan Disposition Patient Disposition: Home Condition: Stable Discharge Details Clinical Impression: Atypical chest pain Primary Care Provider: Rudi Ramirez ED Provider: Mayda Kevin Home Meds and New Rx's Prescriptions: Continued (DME) Blood Glucose Test Strip 1 ea Miscellaneous DAILY Qty: 100 12RF Rx Instructions: FOR available METER. PT DOES NOT USE INSULIN. DIAGNOSIS CODE E11.9 (DME) lancets 28 gauge misc 1 ea Miscellaneous TID & PRN Qty: 100 12RF Rx Instructions: FOR __available METER. DIAGNOSIS CODE E11.9 sertraline 50 mg tablet 50 mg PO DAILY Qty: 90 0RF ondansetron HCl [Zofran] 4 mg tablet 4 mg PO Q6H PRN (Reason: nausea and vomiting) Qty: 30 0RF Patient Comments: rarely uses atorvastatin 10 mg tablet 10 mg PO QAM Qty: 30 11RF losartan-hydrochlorothiazide 100-25 mg tablet 1 tab PO QAM Qty: 30 11RF oxybutynin chloride 5 mg tablet 5 mg PO QAM AND QHS Qty: 60 11RF gabapentin 100 mg capsule 100 mg PO QHS Qty: 30 11RF Rx Instructions: 100 mg orally every day at bedtime; quetiapine 25 mg tablet 25 mg PO QHS Qty: 90 1RF ibuprofen 600 mg tablet 600 mg PO TID PRN (Reason: pain) Qty: 90 0RF acetaminophen [Tylenol] 325 mg capsule 650 mg PO Q6H PRN (Reason: pain) Qty: 90 0RF Discharge Instructions Additional Instructions: please follow-up with pcp tomorrow for reassessment continue on prescripbed medications follow-up with make up artist tomorrow return earlier with new or worsening complaints Referrals: Rudi Ramirez DO [Primary Care Provider] - 1 day HPI General Date/Time Provider Initiated Documentation: 05/24/24 10:46 . HPI Narrative: This 73-year-old female presents with report of chest pain which started approximately 830 this morning. Has a pacemaker but unsure as to whether or not she may have a defibrillator. States that she is never had pain quite like this before. She denies any nausea or vomiting associated to radiation of pain. She denies any shortness of breath or history of coagulopathy. Denies any fever chills or recent upper respiratory symptoms per patient. Related Data Home Medications ?Medication ?Instructions ?Recorded ?Confirmed acetaminophen 325 mg capsule 650 mg (2 x 325 mg) PO Q6H PRN 09/23/18 05/24/24 (Tylenol) pain #90 caps ibuprofen 600 mg tablet 600 mg PO TID PRN pain #90 tabs 09/23/18 05/24/24 blood sugar diagnostic (Blood #100 strips 09/01/19 05/24/24 Glucose Test strips) lancets 28 gauge #100 ea 09/01/19 05/24/24 ondansetron HCl 4 mg tablet 4 mg PO Q6H PRN nausea and 03/16/21 05/24/24 (Zofran) vomiting #30 tabs sertraline 50 mg tablet 50 mg PO DAILY #90 tabs 06/07/23 05/24/24 atorvastatin 10 mg tablet 10 mg PO QAM #30 tabs 09/06/23 05/24/24 gabapentin 100 mg capsule 100 mg PO QHS #30 caps 09/06/23 05/24/24 losartan 100 1 tab PO QAM #30 tabs 09/06/23 05/24/24 mg-hydrochlorothiazide 25 mg tablet oxybutynin chloride 5 mg tablet 5 mg PO QAM AND QHS #60 tab-caps 09/06/23 05/24/24 quetiapine 25 mg tablet 25 mg PO QHS #90 tabs 03/13/24 05/24/24 Previous Rx's ?Medication ?Instructions ?Recorded acetaminophen 325 mg capsule 650 mg (2 x 325 mg) PO Q6H PRN 09/23/18 (Tylenol) pain #90 caps ibuprofen 600 mg tablet 600 mg PO TID PRN pain #90 tabs 09/23/18 blood sugar diagnostic (Blood #100 strips 09/01/19 Glucose Test strips) lancets 28 gauge #100 ea 09/01/19 ondansetron HCl 4 mg tablet 4 mg PO Q6H PRN nausea and 03/16/21 (Zofran) vomiting #30 tabs sertraline 50 mg tablet 50 mg PO DAILY #90 tabs 06/07/23 atorvastatin 10 mg tablet 10 mg PO QAM #30 tabs 09/06/23 gabapentin 100 mg capsule 100 mg PO QHS #30 caps 09/06/23 losartan 100 1 tab PO QAM #30 tabs 09/06/23 mg-hydrochlorothiazide 25 mg tablet oxybutynin chloride 5 mg tablet 5 mg PO QAM AND QHS #60 tab-caps 09/06/23 quetiapine 25 mg tablet 25 mg PO QHS #90 tabs 03/13/24 Allergies Allergy/AdvReac Type Severity Reaction Status Date / Time Penicillins Allergy Unknown Verified 03/02/24 13:18 General Stated Complaint: Palpitatns MELISSA: 3 Exam Narrative Exam Narrative: Alert and oriented 73-year-old female in no acute distress with reproducible pain adjacent to pacemaker. No wound dehiscence or erythema, lungs clear to auscultation, no respiratory distress, distal pulses intact all 4 extremities, no peripheral edema Course Vital Signs Vital signs: Vital Signs Temperature 37.0 C 05/24/24 10:28 Pulse 78 05/24/24 10:28 Respiratory Rate 15 05/24/24 10:28 Blood Pressure 131/72 05/24/24 10:28 Pulse Oximetry 100 05/24/24 10:28 Temperature 36.8 C 05/24/24 14:22 Pulse 76 05/24/24 14:22 Pulse 72 05/24/24 13:10 Respiratory Rate 20 05/24/24 14:22 Respiratory Effort Normal 05/24/24 10:33 Blood Pressure 156/83 H 05/24/24 14:22 Blood Pressure Mean 102 05/24/24 13:01 Pulse Oximetry 98 05/24/24 14:22 Oxygen Delivery Method Room Air 05/24/24 10:28 Oxygen Flow Rate 0 05/24/24 10:28 Pain Level 0 05/24/24 14:22 Lab/Test Results Lab/Test Results: Laboratory Tests Range/Units 05/24/24 05/24/24 11:09 12:18 WBC (4.4-10.8) 10^3/uL 5.58 RBC (3.93-5.22) 10^6/uL 4.89 Hgb (11.2-15.7) g/dL 14.6 Hct (36.0-46.0) % 43.8 MCV (80-95) fL 90 MCH (27.0-33.0) pg 29.9 MCHC (32.0-36.0) % 33.3 RDW (11.7-14.6) % 13.1 Plt Count (130-400) 10^3/uL 204 MPV (8.0-11.0) fL 9.6 Immature Gran % % 0.4 Neutrophils % % 66.6 Lymphocytes % % 22.2 Monocytes % % 8.8 Eosinophils % % 1.1 Basophils % % 0.9 Nucleated RBC % (0.0-0.3) % 0.0 Absolute Neutrophils (1.2-6.7) 10^3/uL 3.72 Absolute Lymphocytes (1.2-3.4) 10^3/uL 1.24 Absolute Monocytes (0.1-0.8) 10^3/uL 0.49 Absolute Eosinophils (0.0-0.7) 10^3/uL 0.06 Absolute Basophils (0.0-0.2) 10^3/uL 0.05 Sodium (136-145) mmol/L 142 Potassium (3.5-5.1) mmol/L 4.0 Chloride (98-107) mmol/L 106 Carbon Dioxide (21.0-32.0) mmol/L 30.0 Anion Gap (3-11) mmol/L 6.0 BUN (7-18) mg/dL 17 Creatinine (0.55-1.02) mg/dL 1.0 Est GFR (CKD-EPI 2020) (mL/min/1.73m2) 59.12 Glucose (74-106) mg/dL 150 H Calcium (8.5-10.1) mg/dL 9.6 Magnesium (1.8-2.4) mg/dL 2.1 Total Bilirubin (0.2-1.0) mg/dL 0.40 AST (15-37) U/L 8 L ALT (14-59) U/L 13 L Alkaline Phosphatase (46-116) U/L 61 Troponin I (<or=51) ng/L 6 8 Total Protein (6.4-8.2) g/dL 6.5 Albumin (3.4-5.0) g/dL 3.2 L Lipase (16-77) U/L 61 Medical Decision Making 73-year-old female no acute distress, given age and medical comorbidities, I did order troponin and cardiac evaluation in addition to Medtronic interrogation. Medtronic shows evidence of short episodes of ventricular tachycardia, none documented since February specifically no V. tach episodes today per Medtronic assessment. Chest x-ray without acute abnormality cardiology interpretation my review, 2 negative troponins and no prior history of coronary artery disease. Patient is encouraged to follow-up with primary care physician, she is asymptomatic at time of reassessment. Low clinical suspicion for pulmonary embolism clinically. Patient will continue her prescribed medications and return earlier should she have new or worsening complaints. Asymptomatic at time of discharge home all conversations had in the presence of patient's daughter and discharged home in the care of same. Quality:SDOH Health Related Social Needs: No Data to Display PFSH All Active Problems (Updated 05/24/24 @ 13:07 by ELIZABETH Lynn) Atypical chest pain (Acute) Financial difficulties (Acute) Impaired instrumental activities of daily living (Acute) Sundowning (Acute) Presence of cardiac pacemaker (Chronic) Advanced care planning/counseling discussion (Acute) Mixed Alzheimer's and vascular dementia (Acute) Agitation due to dementia (Acute) Dementia (Chronic) Declining functional status (Acute) Syncope (Chronic) Asystole by electrocardiogram (Acute) Fibromyalgia (Acute) Medication care plan discussed with patient (Acute) Hyperplastic colon polyp (Acute) Controlled diabetes mellitus (Chronic) Arthralgia (Chronic) shoulders and hips Increased frequency of urination (Acute 04/19/15) Vitamin D deficiency (Chronic) Humeral head fracture (Acute) DOI: 09/23/18 Trochanteric bursitis, right hip (Chronic) Injected 09/11/2018 Anxiety (Chronic) Urinary incontinence in female (Chronic) Osteoarthritis (Chronic) Obesity (Chronic 04/19/15) Memory disturbance (Chronic 07/04/16) Medial joint line tenderness of left knee (Chronic 10/17/15) Left hip pain (Chronic) Insomnia (Chronic 04/19/15) Hyperlipidemia (Chronic 04/20/14) History of elevated glucose (Chronic 12/25/17) Fibromyalgia (Chronic 04/19/15) Fatigue due to depression (Chronic 08/31/13) Essential hypertension (Chronic 11/22/15) Depressed mood (Chronic 03/09/16) Controlled type 2 diabetes mellitus (Chronic 10/17/15) Back pain (Chronic) Attention deficit (Chronic 04/06/16) Anxiety and depression (Chronic 10/08/16) Acute intractable tension-type headache (Chronic 02/19/18) Medical History Palliative care patient Calculus of kidney (03/17/12) Concussion (08/10/16) Cough (07/04/16) Urinary tract infection Depression Surgical History Ureteroscopy 10/2011-STENT PLACEMENT-RIGHT URETER section 04/06/87;10/06/80 Hernia repair x 2 Elbow surgery (~1991) left excision bone Cystectomy, Mini Lap Ovarian (~05/1967) Family History Mother Cancer Uterine Dementia Father Heart disease Neoplasm TESTICULAR Sister Neoplasm COLON Brother Neoplasm COLON Social History Smoking/Tobacco Use Status: Former Tobacco Use Second Hand Exposure: No Smoking risk assessment performed?: Yes Alcohol Intake: never Drug use: Never Substance use type: does not use Counseling given: No Counseling provided: none Adopted: No Caregiver/Support person: No Foster care: No Household members: spouse Housing: house Number of Children: 2 number of grandchildren: 4 Communication Needs: Corrective Lenses Education Level: college Details: Associate's Degree Do you need help understanding health information?: Always current occupation: Retired - office work, in business Pets and animals: Yes (2) Pets and animals: dog(s) Sexually active: No Do you think of yourself as: straight/heterosexual Current gender identity: female What is your relationship status?: How often do you talk on the phone with friends or family?: three or more times per week How often do you get together with friends or relatives?: three or more times per week How often do you attend scientology or latter-day services?: decline to answer Do you belong to any clubs or organized social groups?: no Panel score (0-1 are the most socially isolated patients): 2 What type of physical activity do you participate in: walking Duration: 15-30 minutes/day Frequency: daily Vandana/Denominational: Levi Special vandana needs: No Seatbelt use: always Helmet use: No Drive intox or ride w/intox tractor trailer driver: No Do you feel safe at home: Yes Do you feel safe in your relationship?: Yes
== END 2024-05-24 13:19 | disposition home or self-care (01) ==
PROVIDERS: Emergency Provider Physician Assistant; PCP Family Medicine
DX: R07.89 Other chest pain (principal); I10 Essential (primary) hypertension; E78.5 Hyperlipidemia, unspecified; E11.9 Type 2 diabetes mellitus without complications; G30.9 Alzheimer's disease, unspecified; F02.80 Dementia in other diseases classified elsewhere, unspecified severity, without behavioral disturbance, psychotic disturbance, mood disturbance, and anxiety; F01.50 Vascular dementia, unspecified severity, without behavioral disturbance, psychotic disturbance, mood disturbance, and anxiety; Z95.0 Presence of cardiac pacemaker; Z87.891 Personal history of nicotine dependence
CPT/HCPCS: 80053; 83690; 93005; 99285; 71046; 83735; 84484; 85025; 93010; 99284

== ENCOUNTER 2024-12-06 12:18 | Emergency (ER) | payer MEDICARE, BC, SELFPAY ==
[2024-12-06] VITALS (20 sets, daily range): BP systolic 142–180; BP diastolic 58–81; PULSE 62–87; RESP 9–23; TEMP 36.4; O2SAT 94–97
--- NOTE | 2024-12-06 12:15 | RT.EKG_ITS ---
APPROVED REPORT Exam: Resting ECG Reason for Exam: pacemaker issues Patient Location: E HR:82 bpm ECG Measurements Heart Rate 82 AXIS DC 175 P 50 QRSd 79 QRS -49 QT 359 T -29 QTc 420 Conclusion Sinus rhythM [address] depression no stemi
--- NOTE | 2024-12-06 14:09 | W.ED.GENAD ---
Discharge Plan Disposition Patient Disposition: Home Discharge Details Clinical Impression: Chest wall pain Primary Care Provider: Rudi Ramirez ED Provider: Marisela Girard Home Meds and New Rx's Prescriptions: No Action (DME) Blood Glucose Test Strip 1 ea Miscellaneous DAILY Qty: 100 12RF Rx Instructions: FOR available METER. PT DOES NOT USE INSULIN. DIAGNOSIS CODE E11.9 (DME) lancets 28 gauge misc 1 ea Miscellaneous TID & PRN Qty: 100 12RF Rx Instructions: FOR __available METER. DIAGNOSIS CODE E11.9 sertraline 50 mg tablet 50 mg PO DAILY Qty: 90 0RF acetaminophen [Tylenol] 325 mg capsule 650 mg PO Q8H PRN PRN (Reason: pain) quetiapine 50 mg tablet See Rx Instructions PO QHS Rx Instructions: 50mg orally every day at bedtime; 25mg PO midday atorvastatin 10 mg tablet 10 mg PO QAM Qty: 30 11RF losartan-hydrochlorothiazide 100-25 mg tablet 1 tab PO QAM Qty: 30 11RF oxybutynin chloride 5 mg tablet 5 mg PO QAM AND QHS Qty: 60 11RF gabapentin 100 mg capsule 100 mg PO QHS Qty: 30 11RF Rx Instructions: 100 mg orally every day at bedtime; ibuprofen 600 mg tablet 600 mg PO TID PRN (Reason: pain) Qty: 90 0RF Discharge Instructions Additional Instructions: You had no symptoms of pain while in the emergency department and your lab work was unremarkable. Your EKG was unchanged. Please continue Motrin or Tylenol as needed if your pain returns, if it persists, is severe or has any other associated symptoms like shortness of breath or nausea, please return to the emergency department for reevaluation. Follow-up. For possible follow-up for any HPI General Date/Time Provider Initiated Documentation: 12/06/24 12:29. Limitations to Documentation: altered mental status (dementia ). Information obtained by: patient and family. HPI Narrative: 74-year-old female with past medical history of dementia, cardiac pacemaker, diabetes, hypertension presents for evaluation of pacemaker pain. The patient reports that she has had pain around her pacemaker this morning. She states that it just felt full and puffy. She denies any pain in her chest or radiation of the pain away from her pacemaker. She says that she told her daughter about this pain but she does not really remember much else about it or is unable to tell me more. She denies any symptoms at this time. Related Data Home Medications ?Medication ?Instructions ?Recorded ?Confirmed ibuprofen 600 mg tablet 600 mg PO TID PRN pain #90 tabs 09/23/18 12/06/24 blood sugar diagnostic (Blood #100 strips 09/01/19 12/06/24 Glucose Test strips) lancets 28 gauge #100 ea 09/01/19 12/06/24 sertraline 50 mg tablet 50 mg PO DAILY #90 tabs 06/07/23 12/06/24 atorvastatin 10 mg tablet 10 mg PO QAM #30 tabs 09/06/23 12/06/24 gabapentin 100 mg capsule 100 mg PO QHS #30 caps 09/06/23 12/06/24 losartan 100 1 tab PO QAM #30 tabs 09/06/23 12/06/24 mg-hydrochlorothiazide 25 mg tablet oxybutynin chloride 5 mg tablet 5 mg PO QAM AND QHS #60 tab-caps 09/06/23 12/06/24 acetaminophen 325 mg capsule 650 mg PO Q8H PRN PRN pain 10/13/24 12/06/24 (Tylenol) quetiapine 50 mg tablet See Rx Instructions PO QHS 10/13/24 12/06/24 Previous Rx's ?Medication ?Instructions ?Recorded ibuprofen 600 mg tablet 600 mg PO TID PRN pain #90 tabs 09/23/18 blood sugar diagnostic (Blood #100 strips 09/01/19 Glucose Test strips) lancets 28 gauge #100 ea 09/01/19 sertraline 50 mg tablet 50 mg PO DAILY #90 tabs 06/07/23 atorvastatin 10 mg tablet 10 mg PO QAM #30 tabs 09/06/23 gabapentin 100 mg capsule 100 mg PO QHS #30 caps 09/06/23 losartan 100 1 tab PO QAM #30 tabs 09/06/23 mg-hydrochlorothiazide 25 mg tablet oxybutynin chloride 5 mg tablet 5 mg PO QAM AND QHS #60 tab-caps 09/06/23 Allergies Allergy/AdvReac Type Severity Reaction Status Date / Time Penicillins Allergy Unknown Verified 12/06/24 12:27 General Stated Complaint: GenMedical MELISSA: 3 Exam Narrative Exam Narrative: Review of Systems: All systems reviewed & are unremarkable except as noted in HPI and below Well-developed, no acute distress NCAT PERRL, normal conjunctiva RRR, no chest wall tenderness Unlabored respiratory effort, CTAB Nondistended abdomen , soft NT Extremities w/o edema No rashes or lesions. no focal neurologic deficits Course Vital Signs Vital signs: Vital Signs Temperature 36.4 C L 12/06/24 12:19 Pulse 87 12/06/24 12:19 Respiratory Rate 16 12/06/24 12:19 Blood Pressure 154/81 H 12/06/24 12:19 Pulse Oximetry 95 12/06/24 12:19 Temperature 36.4 C L 12/06/24 12:28 Temperature Source Oral 12/06/24 12:28 Pulse 87 12/06/24 12:28 Respiratory Rate 16 12/06/24 12:28 Respiratory Effort Normal 12/06/24 12:54 Respiratory Depth Normal 12/06/24 12:54 Respiratory Pattern Normal 12/06/24 12:54 Blood Pressure 154/81 H 12/06/24 12:28 Blood Pressure Position Sitting 12/06/24 12:28 Pulse Oximetry 95 12/06/24 12:28 Oxygen Delivery Method Room Air 12/06/24 12:28 Oxygen Flow Rate 0 12/06/24 12:28 Pain Level 0 12/06/24 12:28 Medical Decision Making emergent evaluation of chest wall pain. patients symptoms are non specific and not present at this time. it seems that this is an ongoing issue for her. i do not suspect any infection or dysrhythmia. She does not have a defibrillator so therefore no fire would have taken place patient has significant dementia and could not relate to me any of her symptoms and Referring to her daughter to tell me what she told the daughter this morning. Her EKG was reviewed and independently interpreted: Sinus [address] changes, no STEMI. will get blood work and continue to monitor. No recurrence of symptoms while in the emergency department. Lab work has been unremarkable. Do not suspect cardiac etiology of symptoms. Recommend supportive care as needed and follow up with PCP. REturn to ER precautions advised. Quality:SDOH Health Related Social Needs: No Data to Display PFSH All Active Problems (Updated 12/06/24 @ 14:55 by Marisela Girard MD) Chest wall pain (Acute) Palliative care patient (Acute) Financial difficulties (Acute) Impaired instrumental activities of daily living (Acute) Sundowning (Acute) Presence of cardiac pacemaker (Chronic) Advanced care planning/counseling discussion (Acute) Mixed Alzheimer's and vascular dementia (Acute) Agitation due to dementia (Acute) Dementia (Chronic) Declining functional status (Acute) Syncope (Chronic) Asystole by electrocardiogram (Acute) Fibromyalgia (Acute) Medication care plan discussed with patient (Acute) Hyperplastic colon polyp (Acute) Controlled diabetes mellitus (Chronic) Arthralgia (Chronic) shoulders and hips Increased frequency of urination (Acute 04/19/15) Vitamin D deficiency (Chronic) Humeral head fracture (Acute) DOI: 09/23/18 Trochanteric bursitis, right hip (Chronic) Injected 09/11/2018 Anxiety (Chronic) Urinary incontinence in female (Chronic) Osteoarthritis (Chronic) Obesity (Chronic 04/19/15) Memory disturbance (Chronic 07/04/16) Medial joint line tenderness of left knee (Chronic 10/17/15) Left hip pain (Chronic) Insomnia (Chronic 04/19/15) Hyperlipidemia (Chronic 04/20/14) History of elevated glucose (Chronic 12/25/17) Fibromyalgia (Chronic 04/19/15) Fatigue due to depression (Chronic 08/31/13) Essential hypertension (Chronic 11/22/15) Depressed mood (Chronic 03/09/16) Controlled type 2 diabetes mellitus (Chronic 10/17/15) Back pain (Chronic) Attention deficit (Chronic 04/06/16) Anxiety and depression (Chronic 10/08/16) Acute intractable tension-type headache (Chronic 02/19/18) Medical History Calculus of kidney (03/17/12) Concussion (08/10/16) Cough (07/04/16) Urinary tract infection Depression Surgical History Ureteroscopy 10/2011-STENT PLACEMENT-RIGHT URETER section 04/06/87;10/06/80 Hernia repair x 2 Elbow surgery (~1991) left excision bone Cystectomy, Mini Lap Ovarian (~05/1967) Family History Mother Cancer Uterine Dementia Father Heart disease Neoplasm TESTICULAR Sister Neoplasm COLON Brother Neoplasm COLON Social History Smoking/Tobacco Use Status: Former Tobacco Use Second Hand Exposure: No Smoking risk assessment performed?: Yes Alcohol Intake: never Drug use: Never Substance use type: does not use Counseling given: No Counseling provided: none Adopted: No Caregiver/Support person: No Foster care: No Household members: spouse Housing: house Number of Children: 2 number of grandchildren: 4 Communication Needs: Corrective Lenses Education Level: college Details: Associate's Degree Do you need help understanding health information?: Always current occupation: Retired - office work, in business Pets and animals: Yes (2) Pets and animals: dog(s) Sexually active: No Do you think of yourself as: straight/heterosexual Current gender identity: female What is your relationship status?: How often do you talk on the phone with friends or family?: three or more times per week How often do you get together with friends or relatives?: three or more times per week How often do you attend presybeterian or buddhist services?: decline to answer Do you belong to any clubs or organized social groups?: no Panel score (0-1 are the most socially isolated patients): 2 What type of physical activity do you participate in: walking Duration: 15-30 minutes/day Frequency: daily Vandana/Hinduism: Levi Special vandana needs: No Seatbelt use: always Helmet use: No Drive intox or ride w/intox tow motor driver: No Do you feel safe at home: Yes Do you feel safe in your relationship?: Yes
[2024-12-06 14:10] LABS: Abs Immature Grans 0.01 10^3/uL (0.0-0.06); Absolute Basophil Count 0.07 10^3/uL (0.0-0.2); Absolute Eosinophil Count 0.06 10^3/uL (0.0-0.7); Absolute Lymphocyte Count 1.41 10^3/uL (1.2-3.4); Absolute Monocyte Count 0.49 10^3/uL (0.1-0.8); Absolute Neutrophil Count 3.17 10^3/uL (1.2-6.7); Basophils % 1.3 %; Eosinophils % 1.2 %; HGB 16.1 g/dL (11.2-15.7); Immature Grans % 0.2 %; Lymphocytes % 27.1 %; MCH 29.8 pg (27.0-33.0); MCHC 33.5 % (32.0-36.0); MCV 89 fL (80-95); Monocytes % 9.4 %; Neutrophils % 60.8 %; Platelet Count 182 10^3/uL (130-400); RBC 5.41 10^6/uL (3.93-5.22); RDW 12.9 % (11.7-14.6); RDW-SD 42.3 fL; WBC 5.21 10^3/uL (4.4-10.8)
[2024-12-06 14:35] LABS: NT-proBNP 281 pg/mL (<300); Troponin I 7 ng/L (<or=51)
[2024-12-06 14:44] LABS: ALT 12 U/L (14-59); AST 24 U/L (15-37); Albumin 3.8 g/dL (3.4-5.0); Alkaline Phosphatase 51 U/L (46-116); BUN 14 mg/dL (7-18); Bilirubin, Total 0.9 mg/dL (0.2-1.0); CREATININE 0.9 mg/dL (0.55-1.02); Calcium 9.5 mg/dL (8.5-10.1); Chloride 103 mmol/L (98-107); Estimated GFR 66.67 (mL/min/1.73m2); Glucose 104 mg/dL (74-106); Potassium 4.8 mmol/L (3.5-5.1); Sodium 137 mmol/L (136-145); Total Protein 7.4 g/dL (6.4-8.2)
== END 2024-12-06 15:03 | disposition home or self-care (01) ==
LOC: ER 15:04
PROVIDERS: Emergency Provider Emergency Medicine; PCP Family Medicine
DX: R07.9 Chest pain, unspecified (principal); Z95.0 Presence of cardiac pacemaker; I10 Essential (primary) hypertension; E11.9 Type 2 diabetes mellitus without complications
CPT/HCPCS: 99284 ×2; 36415; 80053; 93005; 83735; 83880; 84484; 85025; 93010

== ENCOUNTER 2025-06-17 23:46 | Emergency (ER) | payer MEDICARE, BC, SELFPAY ==
--- NOTE | 2025-06-17 23:45 | RT.EKG_ITS ---
APPROVED REPORT Exam: Resting ECG Reason for Exam: pacemaker Patient Location: E HR:98 bpm ECG Measurements Heart Rate 98 AXIS [place] 166 P 33 QRSd 74 QRS -69 QT 299 T -87 QTc 381 Conclusion Sinus rhythm...normal P axis, V-rate 60- 99 Inferior infarct, age indeterminate...Q>35mS, T neg, II III aVF Probable anterior infarct, age indeterminate...Q >35mS, T neg, V2-V5 Left Moran Normal Interval NS ST changes/flattening throughout There are no significant changes compared to prior EKG performed on 12/06/2024 at 12:24.
[2025-06-17 23:46] VITALS: BP 179/93; PULSE 99; RESP 18; TEMP 36.7; O2SAT 96
--- NOTE | 2025-06-17 23:55 | ED.GENADUL_ITS ---
Discharge Plan Disposition Patient Disposition: Home Condition: Good Discharge Details Clinical Impression: Dementia, Anxiety, Presence of cardiac pacemaker Primary Care Provider: Rudi Ramirez ED Provider: Gilson Grimes Meds and New Rx's Prescriptions: Continued (DME) Blood Glucose Test Strip 1 ea Miscellaneous DAILY Qty: 100 12RF Rx Instructions: FOR available METER. PT DOES NOT USE INSULIN. DIAGNOSIS CODE E11.9 (DME) lancets 28 gauge misc 1 ea Miscellaneous TID & PRN Qty: 100 12RF Rx Instructions: FOR __available METER. DIAGNOSIS CODE E11.9 acetaminophen [Tylenol] 325 mg capsule 650 mg PO Q8H PRN PRN (Reason: pain) haloperidol lactate 2 mg/mL concentrate 1 mg PO Q6H PRN Qty: 15 0RF olanzapine 5 mg tablet See Rx Instructions .ROUTE .COMPLEX Qty: 30 2RF Dose Instruction: TAKE ONE TABLET BY MOUTH EVERY DAY AT BEDTIME Patient Comments: taking in AM, PCP aware Rx Instructions: TAKE ONE TABLET BY MOUTH EVERY DAY AT BEDTIME lorazepam 0.5 mg tablet 0.25 - 0.5 mg PO BID PRN (Reason: anxiety) Qty: 30 0RF Patient Comments: Pt took 1mg prior to arrival ibuprofen 600 mg tablet 600 mg PO TID PRN (Reason: pain) Qty: 90 0RF Discharge Instructions Additional Instructions: You were seen due to concerns with your pacemaker. Your labs, EKG, chest x-ray and the interrogation of your pacer are all reassuring. There is also no sign of urine infection. Please follow up with your PCP and/or your palliative care team in the next week. Return to ED for chest pain, shortness of breath, neurological change, syncope, other concerns. Stand Alone Forms: Portal Information HPI General Mode of arrival: EMS . Date/Time Provider Initiated Documentation: 06/17/25 23:54 . Limitations to Documentation: other (dementia) . Information obtained by: patient, family, EMS, RN notes reviewed and old records reviewed . HPI Narrative: Patient presents to ED by ambulance after complaining that her pacemaker feels funny. Patient has history of dementia and is not a very good historian. Per EMS, the daughter reports that patient has been complaining of her pacemaker feeling funny tonight. She has done this before and the daughter typically gives her some lorazepam and patient no longer complains about it. Tonight she continues to complain despite the medication. At no time did she complain of chest pain or shortness of breath. Patient denies this currently as well. She has not been ill. She currently has no complaints and is not sure why she is here. Related Data Home Medications ?Medication ?Instructions ?Recorded ?Confirmed ibuprofen 600 mg tablet 600 mg PO TID PRN pain #90 t abs 09/23/18 06/18/25 blood sugar diagnostic (Blood #100 strips 09/01/1907/01 Glucose Test strips) Held on 06/18/25. Instructions: Pt Stopped/Never Started lancets 28 gauge #100 ea 09/01/19 06/18/25 Held on 06/18/25. Instructions: Pt Stopped/Never Started acetaminophen 325 mg capsule 650 mg PO Q8H PRN PRN edin n 10/13/24 06/18/25 (Tylenol) haloperidol lactate 2 mg/mL oral 1 mg (0.5 mL) PO Q6H PRN #15 mL 02/02/25 06/18/25 concentrate olanzapine 5 mg tablet See Rx Instructions .Route 1 07/11/24 06/18/25 .COMPLEX #30 tabs lorazepam 0.5 mg tablet 0.25 - 0.5 mg (0.5 - 1 x 0.5 mg) 06/01/25 06/18/25 PO BID PRN anxiety #30 tabs Previous Rx's ?Medication ?Instructions ?Recorded ibuprofen 600 mg tablet 600 mg PO TID PRN pain #90 t abs 09/23/18 blood sugar diagnostic (Blood #100 strips 09/01/19 Glucose Test strips) Held on 06/18/25. Instructions: Pt Stopped/Never Started lancets 28 gauge #100 ea 09/01/19 Held on 06/18/25. Instructions: Pt Stopped/Never Started haloperidol lactate 2 mg/mL oral 1 mg (0.5 mL) PO Q6H PRN #15 mL 02/02/25 concentrate olanzapine 5 mg tablet See Rx Instructions .Route 1 07/11/24 .COMPLEX #30 tabs lorazepam 0.5 mg tablet 0.25 - 0.5 mg (0.5 - 1 x 0.5 mg) 06/01/25 PO BID PRN anxiety #30 tabs Allergies Allergy/AdvReac Type Severity Reaction Status Date / Time Penicillins Allergy Unknown Verified 12/06/24 12:27 General Stated Complaint: Chest/Rib MELISSA: 3 Exam Narrative Exam Narrative: Const: WDWN elderly female in NAD. VS per triage. HEENT: NC/AT. Normal facial exam. Neck: Supple. Trachea midline. Chest: Pacer in the left upper chest, non-tender. Lungs: Normal respiratory effort. Lungs are clear. Cor: RRR without murmur. Good radial pulses. GI: Soft/ND/NT. Neuro: A+O x 1. Normal speech. Cranial nerves II - XII grossly intact. No gross motor or sensory deficit. Course Vital Signs Vital signs: Vital Signs Temperature 98.1 F 06/17/25 23:46 Pulse 99 H 06/17/25 23:46 Respiratory Rate 18 06/17/25 23:46 Blood Pressure 179/93 H 06/17/25 23:46 Pulse Oximetry 96 06/17/25 23:46 Temperature 98.1 F 06/17/25 23:46 Temperature Source Oral 06/17/25 23:46 Pulse 99 H 06/17/25 23:46 Respiratory Rate 18 06/17/25 23:46 Blood Pressure 179/93 H 06/17/25 23:46 Blood Pressure Position Supine 06/17/25 23:46 Pulse Oximetry 96 06/17/25 23:46 Oxygen Delivery Method Room Air 06/17/25 23:46 Oxygen Flow Rate 0 06/17/25 23:46 Medical Decision Making Patient presenting to the ED by ambulance after complaining that her pacemaker feels funny. Not exactly clear what this means and she is not able to elucidate. Has complained of this before to daughter who has given her Ativan with resolution of complaint. Toncarolyn continues to complain that it does not feel right. Currently has no complaints for me. No reported chest pain or shortness of breath. Given her dementia and inability to provide a clear history will obtain EKG, basic labs including a delta troponin and chest x-ray. Will interrogate pacemaker to ensure that it is functioning properly. 02:15 - Patient's EKG per my read is NSR without acute changes and unchanged from previous. CXR per my read with pacer and pacer wire in tact and in appropriate position. No acute pulmonary process. Labs are unremarkable with normal CBC, electrolytes and flat delta troponin. Daughter noting that patient has seemed to have a change in behavior/cognition over a couple of weeks so U/A checked. This is negative for UTI. Pacer was interrogated and per report seems to be functioning properly. Patient has remained stable and without complaints. Will plan discharge back home with daughter. Follow up with PCP or Palliative. Return precautions provided. Medical Records Medical records reviewed: Yes I reviewed the patient's medical records. Medical records narrative: palliative notes Imaging Data Radiologic Study: Attestation: I personally reviewed and interpreted this imaging study as follows: Imaging: X-Ray My impression: see [facility] Lab Data Lab results reviewed: Yes I reviewed the patient's lab results. Lab results narrative: see [facility] ECG Data Attestation: I personally reviewed and interpreted this ECG (s) as follows: Prior ECG tracings: available for review Interpretation: see [facility]/EKG [facility] All Active Problems (Updated 06/18/25 @ 02:19 by Gilson Grimes MD) ACP (advance care planning) (Acute) Palliative care patient (Acute) Financial difficulties (Acute) Impaired instrumental activities of daily living (Acute) Sundowning (Acute) Presence of cardiac pacemaker (Chronic) Advanced care planning/counseling discussion (Acute) Mixed Alzheimer's and vascular dementia (Acute) Agitation due to dementia (Acute) Dementia (Chronic) Declining functional status (Acute) Syncope (Chronic) Asystole by electrocardiogram (Acute) Fibromyalgia (Acute) Medication care plan discussed with patient (Acute) Hyperplastic colon polyp (Acute) Controlled diabetes mellitus (Chronic) Arthralgia (Chronic) shoulders and hips Increased frequency of urination (Acute 04/19/15) Vitamin D deficiency (Chronic) Humeral head fracture (Acute) DOI: 09/23/18 Trochanteric bursitis, right hip (Chronic) Injected 09/11/2018 Anxiety (Chronic) Urinary incontinence in female (Chronic) Osteoarthritis (Chronic) Obesity (Chronic 04/19/15) Memory disturbance (Chronic 07/04/16) Medial joint line tenderness of left knee (Chronic 10/17/15) Left hip pain (Chronic) Insomnia (Chronic 04/19/15) Hyperlipidemia (Chronic 04/20/14) History of elevated glucose (Chronic 12/25/17) Fibromyalgia (Chronic 04/19/15) Fatigue due to depression (Chronic 08/31/13) Essential hypertension (Chronic 11/22/15) Depressed mood (Chronic 03/09/16) Controlled type 2 diabetes mellitus (Chronic 10/17/15) Back pain (Chronic) Attention deficit (Chronic 04/06/16) Anxiety and depression (Chronic 10/08/16) Acute intractable tension-type headache (Chronic 02/19/18) Medical History Calculus of kidney (03/17/12) Concussion (08/10/16) Cough (07/04/16) Urinary tract infection Depression Surgical History Ureteroscopy 10/2011-STENT PLACEMENT-RIGHT URETER section 04/06/87;10/06/80 Hernia repair x 2 Elbow surgery (~1991) left excision bone Cystectomy, Mini Lap Ovarian (~05/1967) Family History Mother Cancer Uterine Dementia Father Heart disease Neoplasm TESTICULAR Sister Neoplasm COLON Brother Neoplasm COLON Social History Smoking/Tobacco Use Status: Former Tobacco Use Second Hand Exposure: No Smoking risk assessment performed?: Yes Alcohol Intake: never Drug use: Never Substance use type: does not use Counseling given: No Counseling provided: none Adopted: No Caregiver/Support person: No Foster care: No Household members: spouse Housing: house Number of Children: 2 number of grandchildren: 4 Communication Needs: Corrective Lenses Education Level: college Details: Associate's Degree Do you need help understanding health information?: Always current occupation: Retired - office work, in business Pets and animals: Yes (2) Pets and animals: dog(s) Sexually active: No Do you think of yourself as: straight/heterosexual Current gender identity: female What is your relationship status?: How often do you talk on the phone with friends or family?: three or more times per week How often do you get together with friends or relatives?: three or more times per week How often do you attend mandaen or tenriism services?: decline to answer Do you belong to any clubs or organized social groups?: no Panel score (0-1 are the most socially isolated patients): 2 What type of physical activity do you participate in: walking Duration: 15-30 minutes/day Frequency: daily Vandana/Confucianist: Levi Special vandana needs: No Seatbelt use: always Helmet use: No Drive intox or ride w/intox special needs bus driver: No Do you feel safe at home: Yes Do you feel safe in your relationship?: Yes
[2025-06-18] VITALS (18 sets, daily range): BP systolic 131–153; BP diastolic 84–98; PULSE 92–115; RESP 12–24; O2SAT 94–98
[2025-06-18 00:04] LABS: Abs Immature Grans 0.02 10^3/uL (0.0-0.06); HCT 43.2 % (36.0-46.0); HGB 14.7 g/dL (11.2-15.7); Immature Grans % 0.3 %; MCH 29.8 pg (27.0-33.0); MCHC 34.0 % (32.0-36.0); MCV 88 fL (80-95); MPV 9.6 fL (8.0-11.0); Platelet Count 198 10^3/uL (130-400); RBC 4.93 10^6/uL (3.93-5.22); RDW 12.2 % (11.7-14.6); RDW-SD 39.6 fL; WBC 6.27 10^3/uL (4.4-10.8)
[2025-06-18 00:23] LABS: Magnesium 2.1 mg/dL (1.6-2.6); Troponin I 20 ng/L (<35)
[2025-06-18 00:25] LABS: Anion Gap 11.2 mmol/L (3-11); BUN 12 mg/dL (9-23); CO2 22.8 mmol/L (20.0-31.0); Calcium 9.7 mg/dL (8.3-10.6); Chloride 104 mmol/L (98-107); Glucose 145 mg/dL (74-106); Potassium 3.7 mmol/L (3.5-5.1); Sodium 138 mmol/L (136-145)
--- NOTE | 2025-06-18 00:37 | DI.RAD_ITS ---
Exam(s) XR CHEST 2V PA LATERAL EXAM: XR CHEST 2V PA LATERAL CLINICAL HISTORY: check pacer wires TECHNIQUE: 2D digital imaging was performed. Two views. COMPARISON: CR,XR XR CHEST 2V PA LATERAL from 05/24/2024 FINDINGS: Suboptimal pulmonary inflation on the lateral view. HEART: Normal size. There is a single lead pacemaker. The lead is unchanged in position. Aorta: Calcification. PULMONARY VASCULATURE: Normal. MEDIASTINUM: Unremarkable. LUNGS: Clear. PLEURAL SPACE: No pleural effusion or pneumothorax. BONE:Degenerative changes. SOFT TISSUES: Unremarkable. IMPRESSION: No acute abnormality. Pacemaker lead is unchanged in position. The preliminary [facility] report was reviewed. DATA REPOSITORY: RADIATION DOSE DELIVERED:
--- NOTE | 2025-06-18 00:45 | DI.[facility]_ITS ---
PROCEDURE INFORMATION: Exam: XR Chest Exam date and time: 06/18/2025 12:25 AM Age: 74 years old Clinical indication: Other: Pacer issue; Prior surgery; Surgery date: 6+ months; Check pacer wires TECHNIQUE: Imaging protocol: Radiologic exam of the chest. Views: 2 views. COMPARISON: CR XR CHEST 2V PA LATERAL 24/05/2024 11:23 FINDINGS: Tubes, catheters and devices: There is a solitary pacemaker wire unchanged in position compared to the prior study of 05/24/24. Lungs: There is no evidence of focal pulmonary consolidation. The pulmonary vasculature is normal. Pleural spaces: There is no evidence of pneumothorax. There are no pleural effusions present. Heart/Mediastinum: The cardiac silhouette is within normal limits. The mediastinum is normal. Bones/joints: There are degenerative changes of the right greater than left shoulder girdles. Moderate degenerative changes thoracic spine present. The spine, sternum, ribs, and pectoral girdles show no evidence of acute abnormality Soft tissues: There are no soft tissue masses or calcifications. IMPRESSION: There is a solitary pacemaker wire unchanged in position compared to the prior study of 05/24/24. Dictated and Authenticated by: Luis Alberto Cazares MD. Orderin Cornelio Riggins MD
--- NOTE | 2025-06-18 01:32 | NUR.NOTE ---
Pt's pacemaker interrogated @[id number]
[2025-06-18 01:41] LABS: Troponin I 20 ng/L (<35)
[2025-06-18 01:52] LABS: Glucose Negative (Negative)
[2025-06-18 01:58] LABS: C & S Indicated? No; WBC Negative HPF (0-5)
--- NOTE | 2025-06-18 23:50 | NUR.NOTE ---
Accessed chart to print label for paperwork Nursing Note:
== END 2025-06-18 03:28 | disposition home or self-care (01) ==
PROVIDERS: Emergency Provider Emergency Medicine; PCP Family Medicine
DX: F41.9 Anxiety disorder, unspecified (principal); F03.90 Unspecified dementia, unspecified severity, without behavioral disturbance, psychotic disturbance, mood disturbance, and anxiety; Z95.0 Presence of cardiac pacemaker
CPT/HCPCS: 99284 ×2; 36415; 80048; 93005; 71046; 81003; 81015; 83735; 84484; 85025; 93010